=== PATIENT | male | born 1960 | race Caucasian/White ===

== ENCOUNTER 2020-02-23 23:38 | Inpatient (IN) | payer OTHER ==
[~2020-02-23 23:38] MED LIST: Iopamidol-370 76% 500 ML 1 ML ONE
[2020-02-23 23:56] LABS: #Basophils 0.1 thou/uL (0.0-0.2); #Eosinphils 0.3 thou/uL (0.0-0.7); #Lymphocytes 2.3 thou/uL (1.20-3.40); #Monocytes 0.6 thou/uL (0.11-0.59); #Neutrophils 4.6 thou/uL (1.40-6.50); %Eosinophils 3.8 % (0.0-10.0); %Lymphocytes 28.7 % (21.0-51.0); %Monocytes 7.8 % (0.0-10.0); %Neutrophils 58.5 % (42.0-75.0); Hemoglobin 8.3 g/dL (14.0-18.0); Mean Corpuscular HGB CONC 32.5 g/dL (32.0-36.0); Mean Corpuscular Hemoglobin 31.9 pg (27.0-31.0); Mean Corpuscular Volume 98.2 fL (78.0-98.0); Mean Platelet Volume 6.9 fL (7.4-10.4); Platelet Count 133 thou/uL (130-400); RBC Distribution Width 14.2 % (11.5-14.5); Red Blood Cell (RBC) Count 2.59 mill/uL (4.70-6.10); White Blood Cell (WBC) Count 7.9 thou/uL (4.8-10.8)
[2020-02-24] MEDS ORDERED: Ketamine 50 MG/ML (10ML VIAL) ONE (00:13)
[2020-02-24 00:15] LABS: ALT (SGPT) 26 U/L (8-55); AST (SGOT) 67 U/L (5-34); Albumin 3.4 g/dL (3.5-5.0); Alcohol 257 mg/dL (Less than 10); Alkaline Phosphatase 192 U/L (40-110); Anion Gap 13 mmol/L (10-20); BUN (Urea Nitrogen) 5 mg/dL (8.4-25.7); Calc. Creatinine Clearance 0 mL/min (70-130); Calcium 7.9 mg/dL (7.8-10.44); Carbon Dioxide 16 mmol/L (22-29); Chloride 106 mmol/L (98-107); Estimated GFR-MDRD Greater than 90; Globulin 3.4 g/dL (2.4-3.5); Glucose 107 mg/dL (70-105); Protein, Total 6.8 g/dL (6.0-8.3); Sodium 132 mmol/L (136-145)
[2020-02-24] MEDS ORDERED: Fentanyl 100 MCG/2 ML VIAL ONE ×2 (00:56→11:23)
[2020-02-24] MEDS ORDERED: Midazolam HCl 5 mg/ml Vial ONE (00:56)
[2020-02-24] MEDS ORDERED: Dextrose 50% Abboject 50 ML SYRINGE SLOW IVP PRN (01:01)
[2020-02-24] MEDS ORDERED: Dextrose 5% in Water 1,000 ML IV PRN (01:01)
[2020-02-24] MEDS ORDERED: Ondansetron PF 4 MG/2 ML Vial IVP PRN (01:01)
[2020-02-24] MEDS ORDERED: hydrALAZINE 20 MG/ML VIAL SLOW IVP PRN (01:01)
[2020-02-24] MEDS ORDERED: Promethazine HCl 25 MG/ML VIAL IM PRN ×2 (01:04→12:36)
[2020-02-24] MEDS ORDERED: traMADol HCl 50 MG TAB PO PRN ×2 (01:04)
[2020-02-24] MEDS ORDERED: Ibuprofen 600 MG TAB PO PRN (01:04)
[2020-02-24 01:25] LABS: Magnesium 1.5 mg/dL (1.6-2.6); Phosphorus 2.7 mg/dL (2.3-4.7)
[2020-02-24] MEDS ORDERED: Thiamine HCl 200 MG/2 ML VIAL SLOW IVP SCH (02:00)
[2020-02-24 02:15] LABS: Bacteria/HPF None Seen HPF (None Seen); Bilirubin Negative (Negative); Blood, Urine Negative (Negative); Clarity Clear (Clear); Glucose, Urine (Dipstick) Normal (Negative); Ketone, Urine Trace mg/dL (Negative); Leukocyte Negative Leu/uL (Negative); Nitrite Negative (Negative); Protein, Urine (Dipstick) 50 mg/dL (Neg-Trace); RBC/HPF 0-3 HPF (0-3); Specific Gravity, Urine 1.038 (1.002-1.036); Squamous Epithelial 0-3 HPF (0-3); WBC/HPF 0-3 HPF (0-3)
[2020-02-24] MEDS ORDERED: Magnesium Sulfate 4 GM in Sodium Chloride 0.9% 250 ML 250 ML IVPB SCH (03:45)
[2020-02-24] MEDS: Sodium Chloride 0.9% 1,000 ML IV SCH ×2 (03:51→14:44)
[2020-02-24] MEDS ORDERED: Potassium Phosphate 30 MMOL in Sodium Chloride 0.9% 500 ML IVPB SCH (04:00)
[2020-02-24 04:24] LABS: INR-International Normal Ratio 1.6; PTT 32.5 sec (22.9-36.1); Prothrombin Time 18.5 sec (12.0-14.7)
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
[2020-02-24 04:53] VITALS: BMI 29.5
[2020-02-24 05:49] LABS: Bacteria/HPF None Seen HPF (None Seen); Bilirubin Negative (Negative); Blood, Urine Negative (Negative); Clarity Clear (Clear); Glucose, Urine (Dipstick) Normal (Negative); Ketone, Urine Negative (Negative); Leukocyte Negative Leu/uL (Negative); Nitrite Negative (Negative); Protein, Urine (Dipstick) 20 mg/dL (Neg-Trace); RBC/HPF 0-3 HPF (0-3); Specific Gravity, Urine 1.056 (1.002-1.036); Squamous Epithelial 0-3 HPF (0-3); Urobilinogen Normal mg/dL (Less than 2); WBC/HPF 0-3 HPF (0-3)
[2020-02-24 06:00] LABS: Amphetamine Not Detected (NotDetected); Cocaine Metabolite Screen Detected (NotDetected); Medtox Reader # READER 4; Methamphetamine Not Detected (NotDetected); Opiate Screen Not Detected (NotDetected); Phencyclidine (PCP) Not Detected (NotDetected); THC/Cannabinoid Screen Detected (NotDetected)
[2020-02-24 06:01] LABS: Barbiturates Screen Not Detected (NotDetected); Benzodiazepine Screen Not Detected (NotDetected); Medtox Control Line Valid? VALID (VALID); Methadone Not Detected (NotDetected); Oxycodone Screen Not Detected (NotDetected); Tricyclic Screen Not Detected (NotDetected)
[2020-02-24] MEDS: Oxazepam 10 MG CAP PO SCH ×3 (06:14→21:56)
[2020-02-24] MEDS: Acetaminophen 325 MG TAB PO SCH ×2 (06:14→14:44)
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
--- NOTE | 2020-02-24 08:25 | RAD ---
THREE VIEWS RIGHT SHOULDER: DATE: 02/24/2020. PROVIDED CLINICAL HISTORY: Trauma. FINDINGS: There is Cranial migration of the humeral head with obliteration of the subacromial space and some re modeling changes of the undersurface of the acromion, compatible with chronic rotator cuff insufficie ncy. The scapular-Y view is suboptimally positioned, with a grossly normal appearance to the glenohu meral relationship on the current study. Acromioclavicular degenerative changes are seen. The visua lized right lung field appears clear. IMPRESSION: As above. POS: [facility]
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
[2020-02-24] MEDS ORDERED: Morphine 2 MG/ML SYRINGE SLOW IVP PRN (09:04)
--- NOTE | 2020-02-24 09:19 | RAD ---
LEFT HIP RADIOGRAPH: DATE: 02/24/2020. PROVIDED CLINICAL HISTORY: Dislocation. FINDINGS: Comparison 02/23/2020. Dislocation of the left femoral component of left total hip arthroplasty is red emonstrated. This was demonstrated by prior CT to represent displacement of the femoral head mediall y into the region of the obturator foramen. IMPRESSION: As above. POS: [facility]
--- NOTE | 2020-02-24 09:37 | RAD ---
LEFT HIP 2 VIEWS: HISTORY: Hip injury. FINDINGS: The patient has a total hip prosthesis. The prosthesis is dislocated with the femoral component of t he prosthesis dislocated medially in relation to the acetabular cup. IMPRESSION: Hip dislocation. POS: [facility]
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
--- NOTE | 2020-02-24 09:55 | RAD ---
AP PELVIS: HISTORY: Hip injury. FINDINGS: The left hip dislocation is again noted with the femoral component of the prosthesis dislocated media lly in relation to the acetabular cuff which appears to be in fairly normal position. IMPRESSION: Left hip dislocation. POS: [facility]
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
--- NOTE | 2020-02-24 10:49 | RAD ---
TWO VIEWS LEFT WRIST: DATE: 02/24/2020. PROVIDED CLINICAL HISTORY: Pain. FINDINGS: There is soft tissue prominence of the dorsum of the wrist as well as an irregular appearance to the dorsal aspects of the distal carpal row. On the lateral view, there is questioned irregularity invol ving the ulnar margin of the hamate. IMPRESSION: Possible age-indeterminate dorsal hamate fracture. POS: [facility]
[2020-02-24] MEDS: Ascorbic Acid 500 mg Chewable Tablet PO SCH ×2 (11:13→21:56)
[2020-02-24] MEDS: Folic Acid 1 MG TAB PO SCH (11:14)
[2020-02-24] MEDS: Senokot S 8.6-50 MG TAB PO SCH ×2 (11:14→21:54)
[2020-02-24] MEDS: Multivitamin W/ Minerals 1 TAB PO SCH (11:14)
[2020-02-24] MEDS: Polyethylene Glycol 3350 17 GM Packet PO SCH (11:14)
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
[2020-02-24] MEDS ORDERED: Promethazine HCl 25 MG/ML VIAL SLOW IVP PRN (12:36)
[2020-02-24] MEDS ORDERED: Ondansetron HCl/PF 4 MG/2 ML Vial IVP PRN (12:36)
[2020-02-24] MEDS ORDERED: Acetaminophen 500 MG TAB PO SCH ×2 (13:00→18:00)
[2020-02-24] MEDS ORDERED: Dexamethasone 20 MG/5 ML VIAL ONE (14:12)
[2020-02-24] MEDS ORDERED: PHENYLEPHRINE-NS 100 MCG/ML 10 ML SYRINGE ONE (14:12)
[2020-02-24] MEDS ORDERED: Succinylcholine Chloride 20 MG/ML 10 ml SYRINGE FS ONE (14:12)
[2020-02-24] MEDS ORDERED: PROPOFOL 200 MG/20 ML VIAL ONE (14:12)
[2020-02-24] MEDS ORDERED: Glycopyrrolate 0.2 MG/ML 5 ML SYRINGE ONE (14:12)
[2020-02-24] MEDS ORDERED: Lidocaine 1% PF 5 ML VIAL ONE (14:12)
[2020-02-24] MEDS ORDERED: Rocuronium Bromide 10 MG/ML (10ML VIAL) ONE (14:12)
[2020-02-24] MEDS ORDERED: Ondansetron PF 4 MG/2 ML Vial ONE (14:12)
--- NOTE | 2020-02-24 14:15 | RAD ---
TWO VIEWS LEFT HIP: Date: 02-24-2020 Provided Clinical History: Closed reduction FINDINGS: Comparison is made with exam earlier same date. Interval reduction of the previously described left hip dislocation. Alignment appear anatomic. IMPRESSION: As above. POS: [facility]
[2020-02-24] MEDS: Ibuprofen 600 MG TAB PO SCH ×2 (14:24→21:56)
[2020-02-24] MEDS ORDERED: Gabapentin 300 MG CAP PO SCH (15:00)
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
[2020-02-24] MEDS ORDERED: Primidone 50 MG TAB PO PRN (16:18)
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
[2020-02-24] MEDS ORDERED: Acetaminophen/Codeine 30-300mg Tablet PO PRN (18:05)
[2020-02-24] MEDS: Thiamine HCl 200 MG/2 ML VIAL SLOW IVP SCH (21:56)
[2020-02-24] MEDS: Gabapentin 300 MG CAP PO SCH (21:56)
[2020-02-25] MEDS: Acetaminophen/Codeine 30-300mg Tablet PO PRN ×3 (01:33→21:21)
[2020-02-25] MEDS: Acetaminophen 325 MG TAB PO SCH ×4 (01:34→18:21)
[2020-02-25] MEDS: Oxazepam 10 MG CAP PO SCH ×3 (05:15→21:20)
[2020-02-25] MEDS: Ibuprofen 600 MG TAB PO SCH (05:16)
[2020-02-25 05:47] LABS: Anion Gap 10 mmol/L (10-20); BUN (Urea Nitrogen) 12 mg/dL (8.4-25.7); Calc. Creatinine Clearance 111 mL/min (70-130); Calcium 7.4 mg/dL (7.8-10.44); Carbon Dioxide 22 mmol/L (22-29); Chloride 111 mmol/L (98-107); Estimated GFR-MDRD 87; Glucose 132 mg/dL (70-105); Magnesium 2.1 mg/dL (1.6-2.6); Phosphorus 2.8 mg/dL (2.3-4.7); Potassium 4.2 mmol/L (3.5-5.1); Sodium 139 mmol/L (136-145)
[2020-02-25 06:10] LABS: Mean Corpuscular HGB CONC 31.9 g/dL (32.0-36.0); Mean Corpuscular Hemoglobin 30.6 pg (27.0-31.0); Mean Corpuscular Volume 95.9 fL (78.0-98.0); Mean Platelet Volume 7.6 fL (7.4-10.4); Platelet Count 94 thou/uL (130-400); RBC Distribution Width 14.5 % (11.5-14.5); Red Blood Cell (RBC) Count 1.94 mill/uL (4.70-6.10); White Blood Cell (WBC) Count 6.1 thou/uL (4.8-10.8)
[2020-02-25] MEDS ORDERED: Sodium Chloride 0.9% 500 ML IVPB SCH (06:15)
[2020-02-25] MEDS: Polyethylene Glycol 3350 17 GM Packet PO SCH (08:45)
[2020-02-25] MEDS: Folic Acid 1 MG TAB PO SCH (08:46)
[2020-02-25] MEDS: Senokot S 8.6-50 MG TAB PO SCH ×2 (08:46→21:20)
[2020-02-25] MEDS: Gabapentin 300 MG CAP PO SCH ×3 (08:47→21:20)
[2020-02-25] MEDS: Ascorbic Acid 500 mg Chewable Tablet PO SCH ×2 (08:47→21:20)
[2020-02-25] MEDS: PARoxetine 20 MG TAB PO SCH (08:47)
[2020-02-25] MEDS: Nadolol 40 MG TAB PO SCH (08:47)
[2020-02-25] MEDS: Multivitamin W/ Minerals 1 TAB PO SCH (08:47)
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
[2020-02-25] MEDS: Ferrous Sulfate 325 MG TAB PO SCH (18:21)
[2020-02-25] MEDS: Thiamine HCl 200 MG/2 ML VIAL SLOW IVP SCH (21:20)
[2020-02-25] MEDS ORDERED: Senokot S 8.6-50 MG TAB PO PRN (22:11)
[2020-02-25] MEDS ORDERED: Polyethylene Glycol 3350 17 GM Packet PO PRN (22:11)
--- NOTE | 2020-02-25 23:15 | PRG ---
DATE OF SERVICE: 02/25/2020 SUBJECTIVE: The patient was seen during evening rounds, resting comfortably. The patient in no distress. The patient's nurse states that his pain is controlled at this time. The patient has also had 3 bowel movements. Urinary output is adequate for the patient's age and weight. OBJECTIVE: VITAL SIGNS: Stable, afebrile. PLAN: We will change the patient's bowel regimen to p.r.n. Continue iron and vitamin C. We will watch for bleeding as the patient has a history of esophageal varices. We will continue Serax for alcohol withdrawal. Continue physical and occupational therapy. Continue aggressive pulmonary toilet. Once the patient's pain is well controlled and is ambulating safely with physical therapy, he may be discharged home. Job ID: [id number]
[2020-02-26] MEDS: Acetaminophen 325 MG TAB PO SCH ×5 (02:24→23:33)
[2020-02-26] MEDS: Oxazepam 10 MG CAP PO SCH ×3 (05:11→21:23)
[2020-02-26 05:18] LABS: #Eosinphils 0.1 thou/uL (0.0-0.7); #Lymphocytes 0.9 thou/uL (1.20-3.40); #Monocytes 0.3 thou/uL (0.11-0.59); %Basophils 0.3 % (0.0-1.0); %Eosinophils 2.9 % (0.0-10.0); %Lymphocytes 26.1 % (21.0-51.0); %Monocytes 9.7 % (0.0-10.0); Hemoglobin 6.1 g/dL (14.0-18.0); Mean Corpuscular HGB CONC 31.2 g/dL (32.0-36.0); Mean Corpuscular Hemoglobin 29.9 pg (27.0-31.0); Mean Corpuscular Volume 95.5 fL (78.0-98.0); Mean Platelet Volume 7.4 fL (7.4-10.4); Platelet Count 69 thou/uL (130-400); RBC Distribution Width 15.8 % (11.5-14.5); Red Blood Cell (RBC) Count 2.06 mill/uL (4.70-6.10); White Blood Cell (WBC) Count 3.3 thou/uL (4.8-10.8)
[2020-02-26 05:28] LABS: PTT 34.2 sec (22.9-36.1)
[2020-02-26 05:29] LABS: INR-International Normal Ratio 1.5
[2020-02-26 05:38] LABS: Anion Gap 10 mmol/L (10-20); BUN (Urea Nitrogen) 12 mg/dL (8.4-25.7); Calc. Creatinine Clearance 132 mL/min (70-130); Calcium 7.4 mg/dL (7.8-10.44); Carbon Dioxide 21 mmol/L (22-29); Chloride 111 mmol/L (98-107); Estimated GFR-MDRD Greater than 90; Glucose 95 mg/dL (70-105); Magnesium 1.7 mg/dL (1.6-2.6); Phosphorus 1.7 mg/dL (2.3-4.7); Potassium 3.7 mmol/L (3.5-5.1); Sodium 138 mmol/L (136-145)
[2020-02-26] MEDS ORDERED: Potassium Phosphate 30 MMOL in Sodium Chloride 0.9% 500 ML IVPB SCH (06:00)
[2020-02-26] MEDS ORDERED: Potassium Phosphate 30 MMOL in Sodium Chloride 0.9% 250 ML 250 ML IVPB SCH (06:45)
[2020-02-26 08:17] LABS: Hemoglobin 6.4 g/dL (14.0-18.0)
[2020-02-26] MEDS: Ascorbic Acid 500 mg Chewable Tablet PO SCH ×2 (08:29→21:23)
[2020-02-26] MEDS: Ferrous Sulfate 325 MG TAB PO SCH ×2 (08:29→18:03)
[2020-02-26] MEDS: Nadolol 40 MG TAB PO SCH (08:30)
[2020-02-26] MEDS: Multivitamin W/ Minerals 1 TAB PO SCH (08:30)
[2020-02-26] MEDS: Gabapentin 300 MG CAP PO SCH ×3 (08:30→21:23)
[2020-02-26] MEDS: Folic Acid 1 MG TAB PO SCH (08:30)
[2020-02-26] MEDS: PARoxetine 20 MG TAB PO SCH (08:31)
[2020-02-26] MEDS ORDERED: Octreotide Acetate 50 MCG in Sodium Chloride 0.9% 50 ML IVPB SCH (11:45)
[2020-02-26] MEDS: Octreotide Acetate 1,250 MCG in Sodium Chloride 0.9% 250 ML 250 ML IVPB SCH (12:25)
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
[2020-02-26] MEDS: Thiamine HCl 200 MG/2 ML VIAL SLOW IVP SCH (21:23)
[2020-02-27] MEDS: Acetaminophen 325 MG TAB PO SCH ×4 (06:45→23:51)
[2020-02-27] MEDS: Oxazepam 10 MG CAP PO SCH ×3 (06:45→21:08)
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
[2020-02-27] MEDS: Ferrous Sulfate 325 MG TAB PO SCH ×2 (08:08→18:26)
[2020-02-27] MEDS: Gabapentin 300 MG CAP PO SCH ×3 (08:08→21:08)
[2020-02-27] MEDS: Ascorbic Acid 500 mg Chewable Tablet PO SCH ×2 (08:08→21:07)
[2020-02-27] MEDS: Folic Acid 1 MG TAB PO SCH (08:08)
[2020-02-27] MEDS: Multivitamin W/ Minerals 1 TAB PO SCH (08:08)
[2020-02-27] MEDS: Nadolol 40 MG TAB PO SCH (08:09)
[2020-02-27] MEDS: PARoxetine 20 MG TAB PO SCH (08:09)
[2020-02-27] MEDS ORDERED: SUGAMMADEX SODIUM 200 MG/2 ML VIAL ONE (09:02)
[2020-02-27] MEDS ORDERED: Fentanyl 100 MCG/2 ML VIAL ONE (09:02)
[2020-02-27 10:27] LABS: Hemoglobin 7.6 g/dL (14.0-18.0); Mean Corpuscular HGB CONC 32.4 g/dL (32.0-36.0); Mean Corpuscular Hemoglobin 29.9 pg (27.0-31.0); Mean Corpuscular Volume 92.3 fL (78.0-98.0); Mean Platelet Volume 7.6 fL (7.4-10.4); Platelet Count 72 thou/uL (130-400); RBC Distribution Width 18.8 % (11.5-14.5); Red Blood Cell (RBC) Count 2.55 mill/uL (4.70-6.10); White Blood Cell (WBC) Count 3.9 thou/uL (4.8-10.8)
[2020-02-27 10:47] LABS: Anion Gap 12 mmol/L (10-20); BUN (Urea Nitrogen) 7 mg/dL (8.4-25.7); Calc. Creatinine Clearance 155 mL/min (70-130); Calcium 7.8 mg/dL (7.8-10.44); Carbon Dioxide 20 mmol/L (22-29); Chloride 108 mmol/L (98-107); Estimated GFR-MDRD Greater than 90; Glucose 115 mg/dL (70-105); Magnesium 1.5 mg/dL (1.6-2.6); Phosphorus 2.4 mg/dL (2.3-4.7); Potassium 4.1 mmol/L (3.5-5.1); Sodium 136 mmol/L (136-145)
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
[2020-02-27] MEDS ORDERED: Magnesium Sulfate 3 GM in Sodium Chloride 0.9% 250 ML 250 ML IVPB SCH (12:15)
[2020-02-27] MEDS: Octreotide Acetate 1,250 MCG in Sodium Chloride 0.9% 250 ML 250 ML IVPB SCH (14:17)
[2020-02-27] MEDS: Thiamine HCl 200 MG/2 ML VIAL SLOW IVP SCH (21:08)
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
[2020-02-28] MEDS: Acetaminophen 325 MG TAB PO SCH ×4 (05:19→23:27)
[2020-02-28] MEDS: Oxazepam 10 MG CAP PO SCH ×3 (05:19→21:26)
[2020-02-28 06:05] LABS: Anion Gap 11 mmol/L (10-20); BUN (Urea Nitrogen) 6 mg/dL (8.4-25.7); Calc. Creatinine Clearance 157 mL/min (70-130); Calcium 7.6 mg/dL (7.8-10.44); Carbon Dioxide 20 mmol/L (22-29); Chloride 106 mmol/L (98-107); Estimated GFR-MDRD Greater than 90; Glucose 111 mg/dL (70-105); Magnesium 1.7 mg/dL (1.6-2.6); Phosphorus 2.3 mg/dL (2.3-4.7); Sodium 133 mmol/L (136-145)
[2020-02-28 06:36] LABS: Hemoglobin 7.5 g/dL (14.0-18.0); Mean Corpuscular HGB CONC 31.6 g/dL (32.0-36.0); Mean Corpuscular Hemoglobin 31.2 pg (27.0-31.0); Mean Corpuscular Volume 98.8 fL (78.0-98.0); Mean Platelet Volume 9.5 fL (7.4-10.4); Platelet Count 79 thou/uL (130-400); White Blood Cell (WBC) Count 3.6 thou/uL (4.8-10.8)
[2020-02-28 08:42] LABS: Band 8 % (5-11); Hypochromia SLIGHT = 6-15 cells (100X) (0-5/hpf); Lymphocytes 24 % (21-51); MDiff Complete? YES; Monocytes 3 % (0-10); Neutrophil 65 % (42-75); Platelet Morphology Comment Appears Decreased; Polychromasia MODERATE = 3-4 cells (100X) (0-2/hpf)
[2020-02-28] MEDS: Ferrous Sulfate 325 MG TAB PO SCH ×2 (10:25→17:23)
[2020-02-28] MEDS: Ascorbic Acid 500 mg Chewable Tablet PO SCH ×2 (10:26→21:26)
[2020-02-28] MEDS: Bacitracin 1 PK TOP SCH ×2 (10:27→21:26)
[2020-02-28] MEDS: Folic Acid 1 MG TAB PO SCH (10:27)
[2020-02-28] MEDS: Gabapentin 300 MG CAP PO SCH ×3 (10:28→21:26)
[2020-02-28] MEDS: Nadolol 40 MG TAB PO SCH ×2 (10:28→18:25)
[2020-02-28] MEDS: Multivitamin W/ Minerals 1 TAB PO SCH (10:28)
[2020-02-28] MEDS: PARoxetine 20 MG TAB PO SCH ×2 (10:29→18:26)
[2020-02-28] MEDS ORDERED: Ketamine 50 MG/ML (10ML VIAL) ONE (11:16)
[2020-02-28] MEDS ORDERED: PROPOFOL 200 MG/20 ML VIAL ONE (11:50)
[2020-02-28] MEDS ORDERED: Lidocaine 1% PF 5 ML VIAL ONE (11:50)
[2020-02-28] MEDS ORDERED: Promethazine HCl 25 MG/ML VIAL IM PRN (12:12)
[2020-02-28] MEDS ORDERED: Ondansetron HCl/PF 4 MG/2 ML Vial IVP PRN (12:12)
[2020-02-28] MEDS ORDERED: Promethazine HCl 25 MG/ML VIAL SLOW IVP PRN (12:12)
[2020-02-28] MEDS ORDERED: Ondansetron PF 4 MG/2 ML Vial ONE (12:34)
--- NOTE | 2020-02-28 13:20 | OP ---
DATE OF PROCEDURE: 02/28/2020 PROCEDURE PERFORMED: Esophagogastroduodenoscopy with control of hemorrhage, band ligation x2. INDICATION FOR PROCEDURE: Anemia, history of cirrhosis with esophageal varices, status post band ligation. DESCRIPTION OF PROCEDURE: After the risks and benefits of the procedure were explained to the patient including risks of bleeding, infection, perforation, reactions to anesthesia, aspiration, and/or pain, informed consent was obtained. The patient was then taken to the endoscopy suite, where deep anesthesia was given via propofol and ketamine with anesthesia support. Once adequate sedation was achieved, he was maneuvered into the left lateral decubitus position, followed by introduction of the standard gastroscope with intubation of the esophagus, stomach, and the proximal small intestine with the findings listed below. The patient tolerated the procedure well with no immediate perioperative complications. Upon conclusion of the procedure, all equipment was removed from the patient and he was transferred to PACU in satisfactory condition. FINDINGS: Esophagus: Normal-appearing mucosa was seen in the proximal and mid esophagus. There was evidence of whitish-appearing mucosa with a radial type pattern in the distal esophagus consistent with prior band ligation and scar formation. However, there was one small to medium-sized esophageal varix seen in the distal esophagus just above the GE junction that did exhibit red obinna sign. There was no evidence of adherent clot or evidence of active/recent bleeding. Given the presence of this red obinna sign and his prior history of bleeding esophageal varices, band ligation x2 was then performed with no bleeding noted at the end of the maneuver. Otherwise, there was no evidence of erosions, ulcerations, mass lesions, or active/recent bleeding. Stomach: Mild mucosal erythema in a mosaic-type pattern was seen throughout the entire stomach that was friable to the passage of the gastroscope with increased oozing of blood with suctioning the gastric mucosa. However, there was a linear patch of submucosal hemorrhage consistent with a possible arteriovenous malformation seen in the gastric fundus that was actively oozing blood, but stopped only with direct visualization. Given his recent anemia, this was intervened upon with argon plasma coagulation with good hemostasis achieved and no bleeding noted at the end of the maneuver. Otherwise, normal-appearing mucosa was seen in the gastric cardia, fundus, body, greater curvature, antrum, and incisura. A hiatal hernia was seen on gastric retroflexion with the diaphragmatic pinch seen at 40 cm while the gastroesophageal junction was seen at 37 cm denoting a 3 cm hiatal hernia. Duodenum: Normal-appearing mucosa was seen in both the duodenal bulb and second portion of the duodenum. There was no evidence of erosions, ulcerations, mass lesions, or active/recent bleeding. IMPRESSION: 1. A small to medium-sized, single distal esophageal varix seen with red obinna sign without other high-risk stigmata of active/recent bleeding, now status post band ligation x2 (does not seem to be the source of the patient's anemia). 2. Evidence of prior band ligation in the distal esophagus. 3. Xnhl-la-xfbkbnri portal hypertensive gastropathy with increased friability to the passage of the gastroscope. 4. A linear patch of submucosal hemorrhage/arteriovenous malformation with mild oozing, status post argon plasma coagulation with good hemostasis achieved ( unclear if this is contributing to the patient's anemia). 5. A 3 cm hiatal hernia. RECOMMENDATIONS: 1. Would continue to trend the patient's H and H and transfuse as necessary to maintain an H and H of 7 and 21. 2. Continue to monitor clinically for signs of active GI bleeding. 3. If the patient continues to have decrease in his H and H, I would consider a non-GI source of his bleeding or obtaining a tagged RBC scan for further localization. Given the findings today, they are most likely not contributing to his significant downtrending anemia during this admission. 4. I would continue the octreotide for a total duration of therapy of 72 hours. 5. Continue PPI 40 mg daily. 6. Pain control per primary team. We will continue to follow peripherally at this time. Please call with any questions. Job ID: [id number] [facility]
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
[2020-02-28] MEDS: Thiamine HCl 200 MG/2 ML VIAL SLOW IVP SCH (21:26)
[2020-02-28] MEDS: Octreotide Acetate 1,250 MCG in Sodium Chloride 0.9% 250 ML 250 ML IVPB SCH (21:27)
[2020-02-28] MEDS: Acetaminophen/Codeine 30-300mg Tablet PO PRN (22:41)
[2020-02-29 06:00] LABS: Anion Gap 10 mmol/L (10-20); BUN (Urea Nitrogen) 6 mg/dL (8.4-25.7); Calc. Creatinine Clearance 165 mL/min (70-130); Calcium 7.5 mg/dL (7.8-10.44); Carbon Dioxide 22 mmol/L (22-29); Chloride 104 mmol/L (98-107); Estimated GFR-MDRD Greater than 90; Glucose 102 mg/dL (70-105); Magnesium 1.6 mg/dL (1.6-2.6); Phosphorus 2.5 mg/dL (2.3-4.7); Potassium 3.9 mmol/L (3.5-5.1); Sodium 132 mmol/L (136-145)
[2020-02-29 06:10] LABS: Band 6 % (5-11); Hemoglobin 7.5 g/dL (14.0-18.0); Hypochromia SLIGHT = 6-15 cells (100X) (0-5/hpf); Lymphocytes 12 % (21-51); MDiff Complete? YES; Mean Corpuscular HGB CONC 31.8 g/dL (32.0-36.0); Mean Corpuscular Hemoglobin 29.7 pg (27.0-31.0); Mean Corpuscular Volume 93.3 fL (78.0-98.0); Monocytes 8 % (0-10); Neutrophil 74 % (42-75); Platelet Count 65 thou/uL (130-400); Platelet Morphology Comment Appears Adequate; RBC Distribution Width 19.1 % (11.5-14.5); Red Blood Cell (RBC) Count 2.53 mill/uL (4.70-6.10); White Blood Cell (WBC) Count 3.4 thou/uL (4.8-10.8)
[2020-02-29] MEDS: Acetaminophen 325 MG TAB PO SCH ×4 (06:13→23:08)
[2020-02-29] MEDS: Oxazepam 10 MG CAP PO SCH ×3 (06:13→23:08)
[2020-02-29] MEDS ORDERED: Magnesium 2 GM/50 ML 2 GM in Premix Bag 1 BAG IVPB SCH (08:00)
[2020-02-29] MEDS: Nadolol 40 MG TAB PO SCH (08:30)
[2020-02-29] MEDS: PARoxetine 20 MG TAB PO SCH (08:31)
[2020-02-29] MEDS: Gabapentin 300 MG CAP PO SCH ×3 (08:31→20:29)
[2020-02-29] MEDS: Ascorbic Acid 500 mg Chewable Tablet PO SCH ×2 (08:31→17:55)
[2020-02-29] MEDS: Multivitamin W/ Minerals 1 TAB PO SCH (08:31)
[2020-02-29] MEDS: Ferrous Sulfate 325 MG TAB PO SCH ×2 (08:31→17:55)
[2020-02-29] MEDS: Folic Acid 1 MG TAB PO SCH (08:31)
[2020-02-29] MEDS: Bacitracin 1 PK TOP SCH ×2 (08:37→20:29)
[2020-02-29] MEDS: Thiamine 100 MG TAB PO SCH (08:37)
[2020-02-29 14:07] LABS: Hemoglobin 7.7 g/dL (14.0-18.0); Platelet Count 83 thou/uL (130-400)
[2020-02-29] MEDS: Nicotine 14 MG PATCH TOP SCH (15:00)
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
[2020-02-29] MEDS ORDERED: Guaifenesin DM 100-10/5 ML UDCUP PO SCH (18:15)
[2020-02-29 18:31] LABS: Hemoglobin 7.7 g/dL (14.0-18.0); Platelet Count 85 thou/uL (130-400)
[2020-02-29] MEDS: Octreotide Acetate 1,250 MCG in Sodium Chloride 0.9% 250 ML 250 ML IVPB SCH (23:41)
[2020-03-01] MEDS: Acetaminophen 325 MG TAB PO SCH ×4 (05:53→23:44)
[2020-03-01] MEDS: Oxazepam 10 MG CAP PO SCH ×3 (05:53→21:01)
[2020-03-01 06:55] LABS: Band 34 % (5-11); Hemoglobin 7.2 g/dL (14.0-18.0); Lymphocytes 10 % (21-51); MDiff Complete? YES; Mean Corpuscular HGB CONC 31.7 g/dL (32.0-36.0); Mean Corpuscular Hemoglobin 29.7 pg (27.0-31.0); Mean Corpuscular Volume 93.8 fL (78.0-98.0); Mean Platelet Volume 8.2 fL (7.4-10.4); Monocytes 9 % (0-10); Neutrophil 47 % (42-75); Platelet Count 85 thou/uL (130-400); Platelet Morphology Comment Appears Decreased; Red Blood Cell (RBC) Count 2.44 mill/uL (4.70-6.10); White Blood Cell (WBC) Count 4.5 thou/uL (4.8-10.8)
[2020-03-01 07:05] LABS: Anion Gap 10 mmol/L (10-20); BUN (Urea Nitrogen) 9 mg/dL (8.4-25.7); Calc. Creatinine Clearance 152 mL/min (70-130); Calcium 7.5 mg/dL (7.8-10.44); Carbon Dioxide 23 mmol/L (22-29); Chloride 103 mmol/L (98-107); Estimated GFR-MDRD Greater than 90; Glucose 99 mg/dL (70-105); Magnesium 1.7 mg/dL (1.6-2.6); Phosphorus 2.3 mg/dL (2.3-4.7); Sodium 132 mmol/L (136-145)
[2020-03-01] MEDS: Ascorbic Acid 500 mg Chewable Tablet PO SCH ×2 (09:47→18:15)
[2020-03-01] MEDS: Multivitamin W/ Minerals 1 TAB PO SCH (09:47)
[2020-03-01] MEDS: PARoxetine 20 MG TAB PO SCH (09:48)
[2020-03-01] MEDS: Gabapentin 300 MG CAP PO SCH ×3 (09:48→21:01)
[2020-03-01] MEDS: Ferrous Sulfate 325 MG TAB PO SCH ×2 (09:48→18:15)
[2020-03-01] MEDS: Folic Acid 1 MG TAB PO SCH (09:48)
[2020-03-01] MEDS: Thiamine 100 MG TAB PO SCH (09:48)
[2020-03-01] MEDS: Nadolol 40 MG TAB PO SCH (09:48)
[2020-03-01] MEDS: Bacitracin 1 PK TOP SCH ×2 (09:49→21:01)
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
[2020-03-01] MEDS: Nicotine 14 MG PATCH TOP SCH (14:01)
[2020-03-01 19:10] LABS: Hemoglobin 6.9 g/dL (14.0-18.0); Platelet Count 76 thou/uL (130-400)
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
[2020-03-02 05:31] LABS: Hemoglobin 7.7 g/dL (14.0-18.0); Platelet Count 78 thou/uL (130-400)
[2020-03-02] MEDS: Oxazepam 10 MG CAP PO SCH ×3 (05:50→20:40)
[2020-03-02] MEDS: Acetaminophen 325 MG TAB PO SCH ×3 (05:50→17:45)
[2020-03-02] MEDS: Furosemide 20 MG TAB PO SCH (08:58)
[2020-03-02] MEDS: Thiamine 100 MG TAB PO SCH (08:58)
[2020-03-02] MEDS: Nadolol 40 MG TAB PO SCH (08:58)
[2020-03-02] MEDS: Ferrous Sulfate 325 MG TAB PO SCH ×2 (08:58→17:45)
[2020-03-02] MEDS: Folic Acid 1 MG TAB PO SCH (08:58)
[2020-03-02] MEDS: Ascorbic Acid 500 mg Chewable Tablet PO SCH ×2 (08:58→17:45)
[2020-03-02] MEDS: Multivitamin W/ Minerals 1 TAB PO SCH (08:58)
[2020-03-02] MEDS: PARoxetine 20 MG TAB PO SCH (08:58)
[2020-03-02] MEDS: Bacitracin 1 PK TOP SCH ×2 (08:59→20:39)
[2020-03-02] MEDS: Gabapentin 300 MG CAP PO SCH ×3 (09:01→20:39)
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
[2020-03-02] MEDS: Nicotine 14 MG PATCH TOP SCH (14:25)
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
[2020-03-03] MEDS: Acetaminophen 325 MG TAB PO SCH ×3 (00:10→11:34)
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
[2020-03-03 05:39] LABS: #Eosinphils 0.1 thou/uL (0.0-0.7); #Lymphocytes 0.7 thou/uL (1.20-3.40); #Monocytes 0.7 thou/uL (0.11-0.59); #Neutrophils 3.2 thou/uL (1.40-6.50); %Basophils 0.1 % (0.0-1.0); %Eosinophils 2.6 % (0.0-10.0); %Lymphocytes 15.3 % (21.0-51.0); %Monocytes 14.3 % (0.0-10.0); %Neutrophils 67.7 % (42.0-75.0); Hemoglobin 7.9 g/dL (14.0-18.0); Mean Corpuscular HGB CONC 32.2 g/dL (32.0-36.0); Mean Corpuscular Hemoglobin 29.9 pg (27.0-31.0); Mean Corpuscular Volume 92.7 fL (78.0-98.0); Platelet Count 93 thou/uL (130-400); RBC Distribution Width 18.1 % (11.5-14.5); Red Blood Cell (RBC) Count 2.65 mill/uL (4.70-6.10); White Blood Cell (WBC) Count 4.7 thou/uL (4.8-10.8)
[2020-03-03] MEDS: Oxazepam 10 MG CAP PO SCH (05:51)
[2020-03-03 05:58] LABS: Phosphorus 2.1 mg/dL (2.3-4.7)
[2020-03-03 06:03] LABS: Anion Gap 10 mmol/L (10-20); BUN (Urea Nitrogen) 9 mg/dL (8.4-25.7); Calc. Creatinine Clearance 160 mL/min (70-130); Calcium 7.5 mg/dL (7.8-10.44); Carbon Dioxide 22 mmol/L (22-29); Chloride 102 mmol/L (98-107); Estimated GFR-MDRD Greater than 90; Glucose 92 mg/dL (70-105); Magnesium 1.5 mg/dL (1.6-2.6); Potassium 3.7 mmol/L (3.5-5.1); Sodium 130 mmol/L (136-145)
[2020-03-03] MEDS ORDERED: Magnesium 2 GM/50 ML 2 GM in Premix Bag 1 BAG IVPB SCH (08:00)
[2020-03-03] MEDS ORDERED: Sodium Chloride 1 GM TAB PO SCH (09:00)
[2020-03-03] MEDS: Furosemide 20 MG TAB PO SCH (09:20)
[2020-03-03] MEDS: Thiamine 100 MG TAB PO SCH (09:20)
[2020-03-03] MEDS: Bacitracin 1 PK TOP SCH (09:20)
[2020-03-03] MEDS: Folic Acid 1 MG TAB PO SCH (09:20)
[2020-03-03] MEDS: Gabapentin 300 MG CAP PO SCH (09:20)
[2020-03-03] MEDS: Multivitamin W/ Minerals 1 TAB PO SCH (09:20)
[2020-03-03] MEDS: PARoxetine 20 MG TAB PO SCH (09:20)
[2020-03-03] MEDS: Ferrous Sulfate 325 MG TAB PO SCH (09:20)
[2020-03-03] MEDS: Nadolol 40 MG TAB PO SCH (09:21)
[2020-03-03] MEDS: Ascorbic Acid 500 mg Chewable Tablet PO SCH (09:22)
[2020-03-03 11:15] VITALS: BP 115/69; TEMP 98
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
== END 2020-03-03 14:53 | disposition home or self-care (01) | DRG 559 ==
LOC: ERS 23:38 → SURG A 02-24 00:15
PROVIDERS: ADMIT Surgery; ATTEND Surgery
PROC: 0SWBXJZ Revision of Synthetic Substitute in Left Hip Joint, External Approach (ICD-10-PCS; principal; 2020-02-24)
PROC: 30233N1 Transfusion of Nonautologous Red Blood Cells into Peripheral Vein, Percutaneous Approach (ICD-10-PCS; 2020-02-25)
PROC: 06L38CZ Occlusion of Esophageal Vein with Extraluminal Device, Via Natural or Artificial Opening Endoscopic (ICD-10-PCS; 2020-02-28)
DX: T84.021A Dislocation of internal left hip prosthesis, initial encounter (principal); S72.092A Other fracture of head and neck of left femur, initial encounter for closed fracture; K31.811 Angiodysplasia of stomach and duodenum with bleeding; J18.9 Pneumonia, unspecified organism; S32.592A Other specified fracture of left pubis, initial encounter for closed fracture; D61.818 Other pancytopenia; S22.42XA Multiple fractures of ribs, left side, initial encounter for closed fracture; S22.081A Stable burst fracture of T11-T12 vertebra, initial encounter for closed fracture; S32.011A Stable burst fracture of first lumbar vertebra, initial encounter for closed fracture; K76.6 Portal hypertension; D62 Acute posthemorrhagic anemia; E87.1 Hypo-osmolality and hyponatremia; I85.10 Secondary esophageal varices without bleeding; Z11.59 Encounter for screening for other viral diseases; V86.59XA Driver of other special all-terrain or other off-road motor vehicle injured in nontraffic accident, initial encounter; S42.012A Anterior displaced fracture of sternal end of left clavicle, initial encounter for closed fracture; S42.032A Displaced fracture of lateral end of left clavicle, initial encounter for closed fracture; S00.01XA Abrasion of scalp, initial encounter; S63.502A Unspecified sprain of left wrist, initial encounter; S60.512A Abrasion of left hand, initial encounter; F10.129 Alcohol abuse with intoxication, unspecified; Y90.8 Blood alcohol level of 240 mg/100 ml or more; K70.31 Alcoholic cirrhosis of liver with ascites; I10 Essential (primary) hypertension; F17.210 Nicotine dependence, cigarettes, uncomplicated; K31.89 Other diseases of stomach and duodenum; D63.8 Anemia in other chronic diseases classified elsewhere; F41.9 Anxiety disorder, unspecified; E87.6 Hypokalemia; E83.42 Hypomagnesemia; E86.0 Dehydration; J20.9 Acute bronchitis, unspecified; Z79.899 Other long term (current) drug therapy
CPT/HCPCS: 36415; 36430; 51702; 70450; 71260; 72125; 72170; 74177; 76000; 80048; 80053; 80306; 80307; 81003; 81015; 83735; 84100; 85007; 85014; 85018; 85025; 85027; 85049; 85610; 85730; 86850; 86900; 86901; 87070; 87205; 87635; 96374; 96375; G0390; J1100; J2250; J2354; J2405; J2704; J3010; J3411; J3475; J7030; J7050; P9016; Q9967; U0002; U0003

== ENCOUNTER 2020-12-21 17:41 | Inpatient (IN) | payer MEDICARE, OTHER ==
[2020-12-21 19:46] VITALS: BMI 27.1
[2020-12-21] MEDS ORDERED: Ondansetron PF 4 MG/2 ML Vial IVP PRN (22:48)
[2020-12-21] MEDS ORDERED: Acetaminophen 325 MG TAB PO PRN (22:48)
[2020-12-21 23:21] LABS: Hemoglobin 9.2 g/dL (14.0-18.0)
[2020-12-22 02:57] LABS: SARS-CoV-2 PCR by NAA Not Detected (NotDetected)
[2020-12-22 05:45] LABS: Hemoglobin 9.1 g/dL (14.0-18.0); Mean Corpuscular HGB CONC 33.8 g/dL (32.0-36.0); Mean Corpuscular Volume 97.8 fL (78.0-98.0); Mean Platelet Volume 9.4 fL (7.4-10.4); Platelet Count 28 thou/uL (130-400); RBC Distribution Width 13.3 % (11.5-14.5); Red Blood Cell (RBC) Count 2.75 mill/uL (4.70-6.10)
[2020-12-22 05:47] LABS: INR-International Normal Ratio 1.4; PTT 40.2 sec (22.9-36.1); Prothrombin Time 17.6 sec (12.0-14.7)
[2020-12-22 05:50] LABS: #Eosinphils 0.1 thou/uL (0.0-0.7); #Lymphocytes 0.3 thou/uL (1.20-3.40); #Monocytes 0.2 thou/uL (0.11-0.59); #Neutrophils 1.4 thou/uL (1.40-6.50); %Basophils 0.3 % (0.0-1.0); %Eosinophils 6.8 % (0.0-10.0); %Lymphocytes 14.4 % (21.0-51.0); %Monocytes 11.2 % (0.0-10.0); %Neutrophils 67.3 % (42.0-75.0); Reflex for Review?? NO
[2020-12-22 06:15] LABS: ALT (SGPT) 22 U/L (8-55); AST (SGOT) 62 U/L (5-34); Albumin 3.4 g/dL (3.5-5.0); Alkaline Phosphatase 154 U/L (40-110); Bilirubin, Direct 0.9 mg/dL (0.1-0.3); Bilirubin, Total 1.4 mg/dL (0.2-1.2); Protein, Total 6.9 g/dL (6.0-8.3)
[2020-12-22 06:17] LABS: Anion Gap 14 mmol/L (10-20); BUN (Urea Nitrogen) 9 mg/dL (8.4-25.7); Calc. Creatinine Clearance 140 mL/min (70-130); Carbon Dioxide 19 mmol/L (22-29); Chloride 103 mmol/L (98-107); Glucose 76 mg/dL (70-105); Magnesium 1.2 mg/dL (1.6-2.6); Potassium 3.7 mmol/L (3.5-5.1); Sodium 132 mmol/L (136-145)
[2020-12-22 07:51] LABS: Hemoglobin 8.9 g/dL (14.0-18.0)
[2020-12-22] MEDS: Nadolol 40 MG TAB PO SCH (10:16)
[2020-12-22] MEDS: Folic Acid 1 MG TAB PO SCH (10:16)
[2020-12-22] MEDS: Magnesium Oxide 400 MG TAB PO SCH (10:16)
[2020-12-22] MEDS: Pantoprazole 40 MG VIAL IVP SCH ×2 (10:17→20:00)
[2020-12-22] MEDS ORDERED: PROPOFOL 200 MG/20 ML VIAL ONE (11:55)
[2020-12-22] MEDS ORDERED: Lidocaine 1% PF 5 ML VIAL ONE (11:55)
[2020-12-22] MEDS ORDERED: Midazolam HCl 2 mg/2 ml Vial ONE (11:57)
[2020-12-22] MEDS ORDERED: Promethazine HCl 25 MG/ML VIAL IM PRN (12:03)
[2020-12-22] MEDS ORDERED: Ondansetron HCl/PF 4 MG/2 ML Vial IVP PRN (12:03)
[2020-12-22] MEDS ORDERED: Promethazine HCl 25 MG/ML VIAL SLOW IVP PRN (12:03)
[2020-12-22] MEDS: Clindamycin/D5W 600 MG in Premix Bag 1 BAG IVPB SCH ×2 (14:37→21:27)
[2020-12-22] MEDS: Morphine 4 MG/ML VIAL SLOW IVP PRN (15:37)
[2020-12-22] MEDS: Hydrocortisone Acetate 25 MG Suppository PR SCH (20:00)
[2020-12-23] MEDS: Clindamycin/D5W 600 MG in Premix Bag 1 BAG IVPB SCH ×2 (05:24→14:17)
[2020-12-23 05:32] LABS: #Eosinphils 0.1 thou/uL (0.0-0.7); #Lymphocytes 0.4 thou/uL (1.20-3.40); #Monocytes 0.3 thou/uL (0.11-0.59); #Neutrophils 2.2 thou/uL (1.40-6.50); %Eosinophils 4.4 % (0.0-10.0); %Lymphocytes 11.5 % (21.0-51.0); %Monocytes 10.7 % (0.0-10.0); %Neutrophils 73.5 % (42.0-75.0); Hemoglobin 9.1 g/dL (14.0-18.0); Mean Corpuscular HGB CONC 33.2 g/dL (32.0-36.0); Mean Corpuscular Hemoglobin 32.3 pg (27.0-31.0); Mean Corpuscular Volume 97.2 fL (78.0-98.0); Mean Platelet Volume 8.7 fL (7.4-10.4); Platelet Count 30 thou/uL (130-400); RBC Distribution Width 13.4 % (11.5-14.5); Red Blood Cell (RBC) Count 2.83 mill/uL (4.70-6.10)
[2020-12-23 05:47] LABS: Anion Gap 13 mmol/L (10-20); BUN (Urea Nitrogen) 8 mg/dL (8.4-25.7); Calc. Creatinine Clearance 134 mL/min (70-130); Calcium 7.7 mg/dL (7.8-10.44); Carbon Dioxide 20 mmol/L (22-29); Chloride 102 mmol/L (98-107); Glucose 103 mg/dL (70-105); Magnesium 1.3 mg/dL (1.6-2.6); Potassium 3.5 mmol/L (3.5-5.1); Sodium 131 mmol/L (136-145)
[2020-12-23 05:52] LABS: ALT (SGPT) 21 U/L (8-55); AST (SGOT) 59 U/L (5-34); Albumin 3.3 g/dL (3.5-5.0); Alkaline Phosphatase 146 U/L (40-110); Bilirubin, Direct 0.8 mg/dL (0.1-0.3); Bilirubin, Total 1.3 mg/dL (0.2-1.2); Protein, Total 6.9 g/dL (6.0-8.3)
[2020-12-23] MEDS: Magnesium Oxide 400 MG TAB PO SCH (08:20)
[2020-12-23] MEDS: Folic Acid 1 MG TAB PO SCH (08:20)
[2020-12-23] MEDS: Pantoprazole 40 MG VIAL IVP SCH (08:20)
[2020-12-23] MEDS: Nadolol 40 MG TAB PO SCH (08:21)
[2020-12-23] MEDS: Hydrocortisone Acetate 25 MG Suppository PR SCH (08:21)
[2020-12-23] MEDS ORDERED: Multivit, Therapeutic 1 TAB PO SCH (09:00)
[2020-12-23] MEDS: Morphine 4 MG/ML VIAL SLOW IVP PRN ×2 (12:28→14:11)
[2020-12-23 17:13] VITALS: BP 130/62; TEMP 99.2
== END 2020-12-23 18:08 | disposition home or self-care (01) | DRG 394 ==
LOC: 2SW 17:41 → OBSVTOIN 22:48
PROVIDERS: ADMIT Family Medicine; ATTEND Internal Medicine
PROC: 06L38CZ Occlusion of Esophageal Vein with Extraluminal Device, Via Natural or Artificial Opening Endoscopic (ICD-10-PCS; principal; 2020-12-22)
PROC: 0DJD8ZZ Inspection of Lower Intestinal Tract, Via Natural or Artificial Opening Endoscopic (ICD-10-PCS; 2020-12-22)
DX: K64.8 Other hemorrhoids (principal); I85.10 Secondary esophageal varices without bleeding; D61.818 Other pancytopenia; K76.6 Portal hypertension; E87.1 Hypo-osmolality and hyponatremia; L03.116 Cellulitis of left lower limb; I10 Essential (primary) hypertension; E78.5 Hyperlipidemia, unspecified; I73.9 Peripheral vascular disease, unspecified; G89.29 Other chronic pain; F10.10 Alcohol abuse, uncomplicated; F17.210 Nicotine dependence, cigarettes, uncomplicated; R19.7 Diarrhea, unspecified; L25.9 Unspecified contact dermatitis, unspecified cause; K70.30 Alcoholic cirrhosis of liver without ascites; K31.89 Other diseases of stomach and duodenum; K21.9 Gastro-esophageal reflux disease without esophagitis; E83.42 Hypomagnesemia; E88.09 Other disorders of plasma-protein metabolism, not elsewhere classified; Z20.822 Contact with and (suspected) exposure to COVID-19
CPT/HCPCS: 36415; 76705; 80048; 80076; 82105; 83735; 85025; 85610; 85730; 87045; 87046; 87324; 87427; 87449; 87635; C9113; J2250; J2270; J2704; J3411; J3490; U0003; U0005

== ENCOUNTER 2021-01-06 19:21 | Inpatient (IN) | payer OTHER, MEDICARE ==
[2021-01-06] MEDS ORDERED: Morphine 4 MG/ML VIAL ONE (19:53)
[2021-01-06] MEDS ORDERED: Ondansetron PF 4 MG/2 ML Vial ONE (19:53)
[2021-01-06] MEDS ORDERED: Acetaminophen 500 MG TAB ONE (19:53)
[2021-01-06 20:33] LABS: #Eosinphils 2.3 thou/uL (0.0-0.7); #Lymphocytes 0.8 thou/uL (1.20-3.40); #Monocytes 0.8 thou/uL (0.11-0.59); %Basophils 0.1 % (0.0-1.0); %Eosinophils 21.2 % (0.0-10.0); %Lymphocytes 7.4 % (21.0-51.0); %Monocytes 7.4 % (0.0-10.0); %Neutrophils 63.9 % (42.0-75.0); Hemoglobin 11.7 g/dL (14.0-18.0); Mean Corpuscular HGB CONC 32.6 g/dL (32.0-36.0); Mean Corpuscular Hemoglobin 31.7 pg (27.0-31.0); Mean Corpuscular Volume 97.2 fL (78.0-98.0); Mean Platelet Volume 7.4 fL (7.4-10.4); Platelet Count 140 thou/uL (130-400); RBC Distribution Width 13.8 % (11.5-14.5); Red Blood Cell (RBC) Count 3.68 mill/uL (4.70-6.10)
[2021-01-06] MEDS ORDERED: Vancomycin 1 GM/200 ML BAG ONE (20:43)
[2021-01-06 20:52] LABS: Acetaminophen Less than 6.0 mcg/mL (10.0-30.0); Alcohol Less than 10 mg/dL (Less than 10); CRP (Inflammatory) 0.63 mg/dL (= or < 0.5); Magnesium 1.5 mg/dL (1.6-2.6); Salicylate Less than 8.0 mg/dL (15.0-30.0)
[2021-01-06 20:53] LABS: ALT (SGPT) 39 U/L (8-55); AST (SGOT) 53 U/L (5-34); Albumin 3.3 g/dL (3.5-5.0); Alkaline Phosphatase 139 U/L (40-110); Anion Gap 17 mmol/L (10-20); BUN (Urea Nitrogen) 13 mg/dL (8.4-25.7); Bilirubin, Total 1.9 mg/dL (0.2-1.2); Calc. Creatinine Clearance 0 mL/min (70-130); Calcium 7.9 mg/dL (7.8-10.44); Carbon Dioxide 19 mmol/L (22-29); Chloride 104 mmol/L (98-107); Globulin 3.5 g/dL (2.4-3.5); Glucose 104 mg/dL (70-105); Potassium 3.9 mmol/L (3.5-5.1); Protein, Total 6.8 g/dL (6.0-8.3); Sodium 136 mmol/L (136-145)
[2021-01-06 23:21] LABS: Lactic Acid 2.2 mmol/L (0.5-2.2)
[2021-01-06 23:37] LABS: Bacteria/HPF None Seen HPF (None Seen); Bilirubin Negative (Negative); Blood, Urine Negative (Negative); Clarity Clear (Clear); Glucose, Urine (Dipstick) Normal (Negative); Ketone, Urine Negative (Negative); Leukocyte 75 Leu/uL (Negative); Mucous/LPF 1+ LPF (<2+); Nitrite Negative (Negative); Protein, Urine (Dipstick) 10 mg/dL (Neg-Trace); RBC/HPF 0-3 HPF (0-3); Specific Gravity, Urine 1.018 (1.002-1.036); Squamous Epithelial 0-3 HPF (0-3); Urobilinogen Normal mg/dL (Less than 2); WBC/HPF 0-3 HPF (0-3); pH, Urine 6.5 (5.0-9.0)
[2021-01-06] MEDS ORDERED: Acetaminophen 325 MG TAB PO PRN ×2 (23:45→23:58)
[2021-01-06] MEDS ORDERED: Ondansetron PF 4 MG/2 ML Vial IVP PRN ×2 (23:45→23:58)
[2021-01-06] MEDS ORDERED: Ondansetron ODT 4 MG TAB SL PRN (23:45)
[2021-01-06 23:46] LABS: Amphetamine Not Detected (NotDetected); Barbiturates Screen Detected (NotDetected); Benzodiazepine Screen Not Detected (NotDetected); Cocaine Metabolite Screen Not Detected (NotDetected); Medtox Control Line Valid? VALID (VALID); Medtox Reader # READER 4; Methadone Not Detected (NotDetected); Methamphetamine Not Detected (NotDetected); Opiate Screen Detected (NotDetected); Oxycodone Screen Not Detected (NotDetected); Phencyclidine (PCP) Not Detected (NotDetected); THC/Cannabinoid Screen Not Detected (NotDetected); Tricyclic Screen Not Detected (NotDetected)
[2021-01-06] MEDS ORDERED: Ondansetron ODT 4 MG TAB PO PRN (23:58)
[2021-01-07] MEDS ORDERED: hydrALAZINE 20 MG/ML VIAL SLOW IVP PRN (00:05)
[2021-01-07] MEDS ORDERED: Clobetasol 0.05% Cream 15 gm Tube TOP PRN (00:16)
[2021-01-07 00:18] VITALS: BMI 23.7
[2021-01-07 00:40] LABS: HBCM Index 0.08 S/CO (0-0.79); HBSAg Index 0.21 S/CO (0-0.99); Hep A IgM AB Non-Reactive (NonReactive); Hep A IgM S/CO 0.04 S/CO (0-0.79); Hep B Surf Ag Non-Reactive S/CO (NonReactive); Hep C IgG Ab Non-Reactive (NonReactive); Hepatitis B Core IgM Abs Non-Reactive (NonReactive)
[2021-01-07 02:09] LABS: Hemoglobin 11.9 g/dL (14.0-18.0); Mean Corpuscular Hemoglobin 31.4 pg (27.0-31.0); Mean Corpuscular Volume 97.9 fL (78.0-98.0); RBC Distribution Width 13.7 % (11.5-14.5); Red Blood Cell (RBC) Count 3.79 mill/uL (4.70-6.10); White Blood Cell (WBC) Count 8.8 thou/uL (4.8-10.8)
[2021-01-07 02:26] LABS: MDiff Complete? YES; Mean Platelet Volume 7.4 fL (7.4-10.4); Platelet Count 119 thou/uL (130-400)
[2021-01-07 02:27] LABS: Band 7 % (5-11); Eosinophils 18 % (0-10); Hypochromia SLIGHT = 6-15 cells (100X) (0-5/hpf); Lymphocytes 8 % (21-51); Monocytes 9 % (0-10); Neutrophil 58 % (42-75); Platelet Morphology Comment Appears Decreased
[2021-01-07 02:29] LABS: Troponin I 0.013 ng/mL (< 0.028)
[2021-01-07 02:30] LABS: ALT (SGPT) 34 U/L (8-55); AST (SGOT) 46 U/L (5-34); Alkaline Phosphatase 130 U/L (40-110); Anion Gap 16 mmol/L (10-20); BUN (Urea Nitrogen) 12 mg/dL (8.4-25.7); Bilirubin, Total 1.6 mg/dL (0.2-1.2); Calc. Creatinine Clearance 91 mL/min (70-130); Calcium 7.6 mg/dL (7.8-10.44); Carbon Dioxide 17 mmol/L (22-29); Chloride 106 mmol/L (98-107); Globulin 3.2 g/dL (2.4-3.5); Glucose 120 mg/dL (70-105); Magnesium 1.5 mg/dL (1.6-2.6); Potassium 3.8 mmol/L (3.5-5.1); Protein, Total 6.2 g/dL (6.0-8.3); Sodium 135 mmol/L (136-145)
[2021-01-07 02:36] LABS: Phosphorus 3.2 mg/dL (2.3-4.7)
[2021-01-07] MEDS ORDERED: Magnesium 5 GM/10 ML VIAL IM SCH (02:45)
[2021-01-07] MEDS: Lactated Ringer's 1,000 ML IV SCH ×4 (03:26→17:47)
[2021-01-07] MEDS ORDERED: Bacitracin 1 PK ONE (07:57)
[2021-01-07] MEDS ORDERED: Enoxaparin Sodium 40 MG/0.4 ML SYRINGE ONE (10:20)
[2021-01-07] MEDS ORDERED: Thiamine 100 MG TAB ONE (10:20)
[2021-01-07] MEDS ORDERED: Lidocaine 1% (PF) 30 ML VIAL ONE (10:23)
[2021-01-07] MEDS ORDERED: hydrOXYzine 25 MG TAB ONE (10:29)
[2021-01-07] MEDS: hydrOXYzine 25 MG TAB PO PRN (10:32)
[2021-01-07] MEDS: Thiamine 100 MG TAB PO SCH (10:33)
[2021-01-07] MEDS: Multivitamin W/ Minerals 1 TAB PO SCH (10:50)
[2021-01-07] MEDS: Magnesium Oxide 400 MG TAB PO SCH (10:50)
[2021-01-07] MEDS: Nadolol 40 MG TAB PO SCH (10:50)
[2021-01-07] MEDS: Nicotine 14 MG PATCH TD SCH (10:51)
[2021-01-07] MEDS: Enoxaparin Sodium 40 MG/0.4 ML SYRINGE SC SCH (10:51)
[2021-01-07 11:36] LABS: SARS-CoV-2 NAA Rapid Test Not Detected (NotDetected)
[2021-01-07] MEDS ORDERED: methylPREDNISolone Sod Succ 40 MG VIAL IVP SCH (13:45)
[2021-01-07] MEDS ORDERED: Acetaminophen 500 MG TAB PO SCH (13:45)
[2021-01-07] MEDS ORDERED: diphenhydrAMINE 50 MG/ML VIAL IVP SCH (13:45)
[2021-01-07] MEDS: predniSONE 5 MG TAB PO SCH (17:43)
[2021-01-07] MEDS ORDERED: Cetirizine HCl 10 MG TAB PO SCH (21:00)
[2021-01-07] MEDS: Loratadine 10 MG TAB PO SCH (21:47)
[2021-01-07] MEDS: Acetaminophen 500 MG TAB PO SCH (21:48)
[2021-01-07] MEDS: Nystatin Cream 15 GM TUBE TOP SCH (21:50)
[2021-01-08] MEDS: Nicotine 14 MG PATCH TD SCH (01:02)
[2021-01-08] MEDS: Acetaminophen 500 MG TAB PO SCH ×3 (02:05→14:24)
[2021-01-08] MEDS: Lactated Ringer's 1,000 ML IV SCH (03:50)
[2021-01-08 08:19] LABS: ALT (SGPT) 24 U/L (8-55); AST (SGOT) 30 U/L (5-34); Albumin 2.7 g/dL (3.5-5.0); Alkaline Phosphatase 114 U/L (40-110); Anion Gap 14 mmol/L (10-20); BUN (Urea Nitrogen) 14 mg/dL (8.4-25.7); Bilirubin, Total 1.1 mg/dL (0.2-1.2); Calc. Creatinine Clearance 121 mL/min (70-130); Calcium 7.3 mg/dL (7.8-10.44); Carbon Dioxide 20 mmol/L (22-29); Chloride 107 mmol/L (98-107); Globulin 2.6 g/dL (2.4-3.5); Glucose 83 mg/dL (70-105); Potassium 3.9 mmol/L (3.5-5.1); Protein, Total 5.3 g/dL (6.0-8.3); Sodium 137 mmol/L (136-145)
[2021-01-08 09:06] LABS: #Eosinphils 0.5 thou/uL (0.0-0.7); #Monocytes 0.5 thou/uL (0.11-0.59); #Neutrophils 3.9 thou/uL (1.40-6.50); %Basophils 0.1 % (0.0-1.0); %Eosinophils 8.1 % (0.0-10.0); %Lymphocytes 16.8 % (21.0-51.0); %Monocytes 8.8 % (0.0-10.0); %Neutrophils 66.2 % (42.0-75.0); Mean Corpuscular HGB CONC 32.2 g/dL (32.0-36.0); Mean Corpuscular Hemoglobin 31.7 pg (27.0-31.0); Mean Corpuscular Volume 98.3 fL (78.0-98.0); Mean Platelet Volume 7.1 fL (7.4-10.4); Platelet Count 102 thou/uL (130-400); Platelet Morphology Comment Appears Decreased; RBC Distribution Width 13.7 % (11.5-14.5); RBC Morphology Normal; Red Blood Cell (RBC) Count 3.15 mill/uL (4.70-6.10); White Blood Cell (WBC) Count 5.9 thou/uL (4.8-10.8)
[2021-01-08] MEDS: predniSONE 5 MG TAB PO SCH (09:13)
[2021-01-08] MEDS: Loratadine 10 MG TAB PO SCH (09:13)
[2021-01-08] MEDS: Nadolol 40 MG TAB PO SCH (09:13)
[2021-01-08] MEDS: hydrOXYzine 25 MG TAB PO PRN ×2 (09:13→14:24)
[2021-01-08] MEDS: Magnesium Oxide 400 MG TAB PO SCH (09:14)
[2021-01-08] MEDS: Multivitamin W/ Minerals 1 TAB PO SCH (09:14)
[2021-01-08] MEDS: Thiamine 100 MG TAB PO SCH (09:14)
[2021-01-08] MEDS: Enoxaparin Sodium 40 MG/0.4 ML SYRINGE SC SCH (09:15)
[2021-01-08] MEDS: Nystatin Cream 15 GM TUBE TOP SCH (09:15)
[2021-01-08 14:45] VITALS: BP 112/66; TEMP 97.8
== END 2021-01-08 14:36 | disposition home or self-care (01) | DRG 815 ==
LOC: ERS 19:21 → ERHOLD 23:32 → OBSVTOIN 23:32 → T4-A 01-07 12:17
PROVIDERS: ADMIT Family Medicine; ATTEND Family Medicine
PROC: 0HBHXZX Excision of Right Upper Leg Skin, External Approach, Diagnostic (ICD-10-PCS; principal; 2021-01-07)
DX: D72.12 Drug rash with eosinophilia and systemic symptoms syndrome (principal); I85.10 Secondary esophageal varices without bleeding; B37.89 Other sites of candidiasis; E44.1 Mild protein-calorie malnutrition; L27.1 Localized skin eruption due to drugs and medicaments taken internally; I10 Essential (primary) hypertension; F17.210 Nicotine dependence, cigarettes, uncomplicated; K70.30 Alcoholic cirrhosis of liver without ascites; D64.9 Anemia, unspecified; T36.8X5A Adverse effect of other systemic antibiotics, initial encounter; Y92.89 Other specified places as the place of occurrence of the external cause; Z68.23 Body mass index [BMI] 23.0-23.9, adult
CPT/HCPCS: 36415; 71045; 80053; 80074; 80306; 80307; 81003; 81015; 82150; 82550; 82607; 82746; 83605; 83690; 83735; 84100; 84484; 85007; 85025; 85027; 85060; 86140; 87040; 87086; 88305; 88312; 93005; 96365; 96366; 96375; J1200; J1650; J2001; J2270; J2405; J2920; J3370; J3475; J7512; U0002; U0003; U0005

== ENCOUNTER 2021-01-11 00:13 | Inpatient (IN) | payer MEDICARE ==
[2021-01-11] MEDS ORDERED: HYDROcodone/Acetaminophen 5/325 mg Tablet PO PRN ×3 (02:05→08:05)
[2021-01-11] MEDS ORDERED: Ondansetron ODT 4 MG TAB SL PRN (02:15)
[2021-01-11] MEDS ORDERED: Acetaminophen 325 MG TAB PO PRN (02:15)
[2021-01-11] MEDS ORDERED: Ondansetron PF 4 MG/2 ML Vial IVP PRN ×2 (02:15→08:05)
[2021-01-11] MEDS ORDERED: Sodium Chloride 0.9% 1,000 ML IV SCH (02:15)
[2021-01-11 02:26] VITALS: BMI 27.8
[2021-01-11] MEDS ORDERED: Clindamycin/D5W 600 MG in Premix Bag 1 BAG IVPB SCH (03:00)
[2021-01-11] MEDS ORDERED: hydrOXYzine 25 MG TAB PO PRN (03:41)
[2021-01-11] MEDS ORDERED: diphenhydrAMINE 50 MG/ML VIAL IVP SCH ×2 (04:00→08:30)
[2021-01-11 05:18] LABS: #Eosinphils 0.5 thou/uL (0.0-0.7); #Monocytes 0.6 thou/uL (0.11-0.59); #Neutrophils 2.9 thou/uL (1.40-6.50); %Basophils 0.9 % (0.0-1.0); %Eosinophils 9.9 % (0.0-10.0); %Lymphocytes 19.8 % (21.0-51.0); %Monocytes 11.4 % (0.0-10.0); Hemoglobin 10.8 g/dL (14.0-18.0); Mean Corpuscular HGB CONC 33.5 g/dL (32.0-36.0); Mean Corpuscular Hemoglobin 32.5 pg (27.0-31.0); Mean Corpuscular Volume 97.1 fL (78.0-98.0); Mean Platelet Volume 7.7 fL (7.4-10.4); Platelet Count 71 thou/uL (130-400); RBC Distribution Width 14.2 % (11.5-14.5); Red Blood Cell (RBC) Count 3.32 mill/uL (4.70-6.10)
[2021-01-11 05:44] LABS: Lactic Acid 2.4 mmol/L (0.5-2.2)
[2021-01-11 05:53] LABS: Anion Gap 11 mmol/L (10-20); BUN (Urea Nitrogen) 12 mg/dL (8.4-25.7); Calc. Creatinine Clearance 129 mL/min (70-130); Calcium 6.6 mg/dL (7.8-10.44); Carbon Dioxide 20 mmol/L (22-29); Chloride 107 mmol/L (98-107); Glucose 112 mg/dL (70-105); Potassium 3.9 mmol/L (3.5-5.1); Sodium 134 mmol/L (136-145)
[2021-01-11] MEDS ORDERED: Cefepime 2 GM in Sodium Chloride 0.9% 100 ML IVPB SCH (08:00)
[2021-01-11] MEDS ORDERED: hydrALAZINE 20 MG/ML VIAL SLOW IVP PRN (08:05)
[2021-01-11] MEDS ORDERED: Zolpidem Tartrate 5 MG TAB PO PRN (08:05)
[2021-01-11] MEDS ORDERED: Sodium Chloride 0.65% Nasal 44 ML BOT EA NARE PRN (08:05)
[2021-01-11] MEDS ORDERED: Senokot S 8.6-50 MG TAB PO PRN (08:05)
[2021-01-11] MEDS ORDERED: Ondansetron ODT 4 MG TAB PO PRN (08:05)
[2021-01-11] MEDS ORDERED: GUAIFENESIN SF SOLN 200 MG/10 ML UDCUP PO PRN (08:05)
[2021-01-11] MEDS ORDERED: Cepastat Lozenges 1 LOZ PO PRN (08:05)
[2021-01-11] MEDS ORDERED: Loperamide HCl 2 MG CAP PO PRN (08:05)
[2021-01-11] MEDS ORDERED: Bisacodyl 5 MG TAB PO PRN (08:05)
[2021-01-11] MEDS: Famotidine 20 MG TAB PO SCH ×2 (08:51→21:20)
[2021-01-11] MEDS: Primidone 50 MG TAB PO SCH ×2 (08:52→21:19)
[2021-01-11] MEDS: Nadolol 40 MG TAB PO SCH (08:52)
[2021-01-11] MEDS: hydrOXYzine 25 MG TAB PO SCH ×2 (08:52→12:29)
[2021-01-11] MEDS: Spironolactone 25 MG TAB PO SCH (08:52)
[2021-01-11] MEDS: Loratadine 10 MG TAB PO SCH (08:52)
[2021-01-11] MEDS: methylPREDNISolone Sod Succ/PF 125 MG/2 ML VIAL IVP SCH (08:53)
[2021-01-11] MEDS: Lactated Ringer's 1,000 ML IV SCH ×2 (08:54→17:43)
[2021-01-11] MEDS ORDERED: Cetirizine HCl 10 MG TAB PO SCH (09:00)
[2021-01-11] MEDS ORDERED: Enoxaparin Sodium 40 MG/0.4 ML SYRINGE SC SCH (09:00)
[2021-01-11] MEDS ORDERED: Non-Formulary Item 1 EACH (Nadolol [Corgard] 20 MG Tab) PO SCH (09:00)
[2021-01-11] MEDS: Nystatin Cream 15 GM TUBE TOP SCH ×2 (09:15→21:22)
[2021-01-11 13:07] LABS: Lactic Acid 3.6 mmol/L (0.5-2.2)
[2021-01-11] MEDS ORDERED: Lactated Ringer's 500 ML IV SCH (13:30)
[2021-01-11] MEDS ORDERED: Lactated Ringer's 1,000 ML IV SCH (13:30)
[2021-01-11] MEDS: hydrOXYzine 10 MG/5 ML UDCUP PO SCH ×2 (17:52→21:20)
[2021-01-11 20:07] LABS: Lactic Acid 2.7 mmol/L (0.5-2.2)
[2021-01-11] MEDS: Montelukast Sodium 10 mg Tablet PO SCH (21:20)
[2021-01-12] MEDS: Lactated Ringer's 1,000 ML IV SCH ×4 (02:18→21:42)
[2021-01-12 06:20] LABS: #Eosinphils 0.6 thou/uL (0.0-0.7); #Lymphocytes 1.2 thou/uL (1.20-3.40); #Monocytes 0.5 thou/uL (0.11-0.59); #Neutrophils 2.5 thou/uL (1.40-6.50); %Basophils 0.3 % (0.0-1.0); %Lymphocytes 24.8 % (21.0-51.0); %Monocytes 9.4 % (0.0-10.0); %Neutrophils 52.5 % (42.0-75.0); Hemoglobin 9.4 g/dL (14.0-18.0); Mean Corpuscular HGB CONC 32.9 g/dL (32.0-36.0); Mean Corpuscular Hemoglobin 32.4 pg (27.0-31.0); Mean Corpuscular Volume 98.5 fL (78.0-98.0); Mean Platelet Volume 8.2 fL (7.4-10.4); Platelet Count 68 thou/uL (130-400); RBC Distribution Width 14.1 % (11.5-14.5); Red Blood Cell (RBC) Count 2.88 mill/uL (4.70-6.10); White Blood Cell (WBC) Count 4.7 thou/uL (4.8-10.8)
[2021-01-12 06:40] LABS: Anion Gap 9 mmol/L (10-20); BUN (Urea Nitrogen) 11 mg/dL (8.4-25.7); Calc. Creatinine Clearance 138 mL/min (70-130); Calcium 6.8 mg/dL (7.8-10.44); Carbon Dioxide 21 mmol/L (22-29); Chloride 109 mmol/L (98-107); Glucose 90 mg/dL (70-105); Potassium 3.6 mmol/L (3.5-5.1); Sodium 135 mmol/L (136-145)
[2021-01-12 06:41] LABS: ALT (SGPT) 22 U/L (8-55); AST (SGOT) 23 U/L (5-34); Albumin 2.4 g/dL (3.5-5.0); Alkaline Phosphatase 108 U/L (40-110); Bilirubin, Direct 0.5 mg/dL (0.1-0.3); Bilirubin, Total 0.7 mg/dL (0.2-1.2); CRP (Inflammatory) 1.41 mg/dL (= or < 0.5); Protein, Total 4.7 g/dL (6.0-8.3)
[2021-01-12 07:34] LABS: Lactic Acid 2.5 mmol/L (0.5-2.2)
[2021-01-12] MEDS: VANCOMYCIN 1.75 GM/350 ML BAG 1.75 GM in Premix Bag 1 BAG IVPB SCH ×2 (08:20→21:44)
[2021-01-12] MEDS: Loratadine 10 MG TAB PO SCH (08:21)
[2021-01-12] MEDS: Famotidine 20 MG TAB PO SCH ×2 (08:21→21:42)
[2021-01-12] MEDS: Nadolol 40 MG TAB PO SCH (08:22)
[2021-01-12] MEDS: Nystatin Cream 15 GM TUBE TOP SCH ×2 (08:26→21:44)
[2021-01-12] MEDS: Primidone 50 MG TAB PO SCH ×2 (08:27→21:42)
[2021-01-12] MEDS: hydrOXYzine 10 MG/5 ML UDCUP PO SCH ×4 (08:29→21:43)
[2021-01-12] MEDS: methylPREDNISolone Sod Succ/PF 125 MG/2 ML VIAL IVP SCH (08:30)
[2021-01-12] MEDS: Spironolactone 25 MG TAB PO SCH (09:06)
[2021-01-12] MEDS: Montelukast Sodium 10 mg Tablet PO SCH (21:42)
[2021-01-13] MEDS: Lactated Ringer's 1,000 ML IV SCH ×3 (06:08→21:18)
[2021-01-13 07:36] LABS: #Basophils 0.1 thou/uL (0.0-0.2); #Eosinphils 0.5 thou/uL (0.0-0.7); #Lymphocytes 1.5 thou/uL (1.20-3.40); #Monocytes 0.6 thou/uL (0.11-0.59); #Neutrophils 2.1 thou/uL (1.40-6.50); %Basophils 1.2 % (0.0-1.0); %Eosinophils 10.2 % (0.0-10.0); %Lymphocytes 31.5 % (21.0-51.0); Hemoglobin 9.6 g/dL (14.0-18.0); Mean Corpuscular HGB CONC 33.2 g/dL (32.0-36.0); Mean Corpuscular Hemoglobin 32.1 pg (27.0-31.0); Mean Corpuscular Volume 96.6 fL (78.0-98.0); Mean Platelet Volume 8.1 fL (7.4-10.4); Platelet Count 59 thou/uL (130-400); RBC Distribution Width 14.2 % (11.5-14.5); Red Blood Cell (RBC) Count 2.99 mill/uL (4.70-6.10); White Blood Cell (WBC) Count 4.7 thou/uL (4.8-10.8)
[2021-01-13 07:39] LABS: Anion Gap 8 mmol/L (10-20); BUN (Urea Nitrogen) 10 mg/dL (8.4-25.7); Calc. Creatinine Clearance 159 mL/min (70-130); Calcium 7.4 mg/dL (7.8-10.44); Carbon Dioxide 23 mmol/L (22-29); Chloride 110 mmol/L (98-107); Glucose 74 mg/dL (70-105); Sodium 137 mmol/L (136-145)
[2021-01-13 08:51] LABS: Lactic Acid 2.4 mmol/L (0.5-2.2)
[2021-01-13] MEDS: Loratadine 10 MG TAB PO SCH (09:11)
[2021-01-13] MEDS: Spironolactone 25 MG TAB PO SCH (09:11)
[2021-01-13] MEDS: Nadolol 40 MG TAB PO SCH (09:12)
[2021-01-13] MEDS: Nystatin Cream 15 GM TUBE TOP SCH ×2 (09:12→21:17)
[2021-01-13] MEDS: Famotidine 20 MG TAB PO SCH ×2 (09:12→21:16)
[2021-01-13] MEDS: Primidone 50 MG TAB PO SCH ×2 (09:12→21:17)
[2021-01-13] MEDS: methylPREDNISolone Sod Succ/PF 125 MG/2 ML VIAL IVP SCH (09:13)
[2021-01-13] MEDS: VANCOMYCIN 1.75 GM/350 ML BAG 1.75 GM in Premix Bag 1 BAG IVPB SCH ×2 (09:13→21:17)
[2021-01-13] MEDS: hydrOXYzine 10 MG/5 ML UDCUP PO SCH ×4 (09:14→21:24)
[2021-01-13 20:35] LABS: Vancomycin, Trough 17.4 ug/mL
[2021-01-13] MEDS: Montelukast Sodium 10 mg Tablet PO SCH (21:17)
[2021-01-14] MEDS: Lactated Ringer's 1,000 ML IV SCH ×3 (05:15→23:05)
[2021-01-14 06:38] LABS: #Eosinphils 0.3 thou/uL (0.0-0.7); #Lymphocytes 1.8 thou/uL (1.20-3.40); #Monocytes 0.8 thou/uL (0.11-0.59); #Neutrophils 3.5 thou/uL (1.40-6.50); %Basophils 0.7 % (0.0-1.0); %Eosinophils 4.5 % (0.0-10.0); %Lymphocytes 28.3 % (21.0-51.0); %Monocytes 12.9 % (0.0-10.0); %Neutrophils 53.7 % (42.0-75.0); Hemoglobin 10.3 g/dL (14.0-18.0); Mean Corpuscular HGB CONC 32.9 g/dL (32.0-36.0); Mean Corpuscular Hemoglobin 31.8 pg (27.0-31.0); Mean Corpuscular Volume 96.7 fL (78.0-98.0); Mean Platelet Volume 7.9 fL (7.4-10.4); Platelet Count 65 thou/uL (130-400); RBC Distribution Width 14.2 % (11.5-14.5); Red Blood Cell (RBC) Count 3.23 mill/uL (4.70-6.10); White Blood Cell (WBC) Count 6.5 thou/uL (4.8-10.8)
[2021-01-14 06:42] LABS: Lactic Acid 1.6 mmol/L (0.5-2.2)
[2021-01-14 06:45] LABS: Anion Gap 10 mmol/L (10-20); BUN (Urea Nitrogen) 10 mg/dL (8.4-25.7); Calc. Creatinine Clearance 159 mL/min (70-130); Calcium 7.5 mg/dL (7.8-10.44); Carbon Dioxide 22 mmol/L (22-29); Chloride 109 mmol/L (98-107); Glucose 92 mg/dL (70-105); Potassium 4.1 mmol/L (3.5-5.1); Sodium 137 mmol/L (136-145)
[2021-01-14] MEDS ORDERED: Hydrocerin (Eucerin) Cream 120 gm Jar TOP PRN (08:11)
[2021-01-14] MEDS: Famotidine 20 MG TAB PO SCH ×2 (09:00→20:33)
[2021-01-14] MEDS: Primidone 50 MG TAB PO SCH ×2 (09:00→20:33)
[2021-01-14] MEDS: VANCOMYCIN 1.75 GM/350 ML BAG 1.75 GM in Premix Bag 1 BAG IVPB SCH ×2 (09:00→20:35)
[2021-01-14] MEDS: Loratadine 10 MG TAB PO SCH (09:01)
[2021-01-14] MEDS: Nadolol 40 MG TAB PO SCH (09:01)
[2021-01-14] MEDS: Spironolactone 25 MG TAB PO SCH (09:01)
[2021-01-14] MEDS: hydrOXYzine 10 MG/5 ML UDCUP PO SCH ×4 (09:01→20:32)
[2021-01-14] MEDS: Nystatin Cream 15 GM TUBE TOP SCH ×2 (09:02→20:34)
[2021-01-14] MEDS: methylPREDNISolone Sod Succ/PF 125 MG/2 ML VIAL IVP SCH (09:02)
[2021-01-14] MEDS: Montelukast Sodium 10 mg Tablet PO SCH (20:33)
[2021-01-15 08:34] LABS: Vancomycin, Trough 23.4 ug/mL
[2021-01-15] MEDS: hydrOXYzine 10 MG/5 ML UDCUP PO SCH ×4 (09:00→22:00)
[2021-01-15] MEDS ORDERED: Vancomycin 1.5 GRAM/300 ML BAG 1.5 GM in Premix Bag 1 BAG IVPB SCH (09:00)
[2021-01-15] MEDS: Famotidine 20 MG TAB PO SCH ×2 (09:01→20:43)
[2021-01-15] MEDS: Spironolactone 25 MG TAB PO SCH (09:01)
[2021-01-15] MEDS: Nystatin Cream 15 GM TUBE TOP SCH ×2 (09:03→23:45)
[2021-01-15] MEDS: Loratadine 10 MG TAB PO SCH (09:03)
[2021-01-15] MEDS: Primidone 50 MG TAB PO SCH ×2 (09:03→20:44)
[2021-01-15] MEDS: Nadolol 40 MG TAB PO SCH (09:04)
[2021-01-15] MEDS: methylPREDNISolone Sod Succ/PF 125 MG/2 ML VIAL IVP SCH (09:05)
[2021-01-15] MEDS: VANCOMYCIN 1.75 GM/350 ML BAG 1.75 GM in Premix Bag 1 BAG IVPB SCH (09:09)
[2021-01-15] MEDS: Vancomycin 1.5 GRAM/300 ML BAG 1.5 GM in Premix Bag 1 BAG IVPB SCH (12:15)
[2021-01-15] MEDS: Lactated Ringer's 1,000 ML IV SCH (17:39)
[2021-01-15] MEDS: Montelukast Sodium 10 mg Tablet PO SCH (20:44)
[2021-01-16] MEDS: Vancomycin 1.5 GRAM/300 ML BAG 1.5 GM in Premix Bag 1 BAG IVPB SCH ×2 (01:05→12:31)
[2021-01-16] MEDS: predniSONE 50 MG TAB PO SCH ×2 (08:52→17:01)
[2021-01-16] MEDS: Spironolactone 25 MG TAB PO SCH (08:52)
[2021-01-16] MEDS: Famotidine 20 MG TAB PO SCH ×2 (08:53→21:21)
[2021-01-16] MEDS: Nadolol 40 MG TAB PO SCH (08:56)
[2021-01-16] MEDS: hydrOXYzine 10 MG/5 ML UDCUP PO SCH ×4 (08:57→21:23)
[2021-01-16] MEDS: Loratadine 10 MG TAB PO SCH (08:57)
[2021-01-16] MEDS: Nystatin Cream 15 GM TUBE TOP SCH ×2 (08:58→21:23)
[2021-01-16] MEDS: Primidone 50 MG TAB PO SCH ×2 (08:58→21:22)
[2021-01-16 09:39] LABS: Anion Gap 10 mmol/L (10-20); BUN (Urea Nitrogen) 10 mg/dL (8.4-25.7); Calc. Creatinine Clearance 142 mL/min (70-130); Calcium 8.3 mg/dL (7.8-10.44); Carbon Dioxide 27 mmol/L (22-29); Chloride 103 mmol/L (98-107); Glucose 111 mg/dL (70-105); Potassium 3.6 mmol/L (3.5-5.1); Sodium 136 mmol/L (136-145)
[2021-01-16] MEDS: Montelukast Sodium 10 mg Tablet PO SCH (21:21)
[2021-01-16] MEDS: Methocarbamol 500 MG TAB PO SCH (21:23)
[2021-01-17 00:37] LABS: Vancomycin, Trough 16.1 ug/mL
[2021-01-17] MEDS: Vancomycin 1.5 GRAM/300 ML BAG 1.5 GM in Premix Bag 1 BAG IVPB SCH ×2 (01:55→12:57)
[2021-01-17] MEDS: Methocarbamol 500 MG TAB PO SCH ×2 (08:18→22:10)
[2021-01-17] MEDS: Primidone 50 MG TAB PO SCH ×2 (08:19→22:09)
[2021-01-17] MEDS: Spironolactone 25 MG TAB PO SCH (08:19)
[2021-01-17] MEDS: Nadolol 40 MG TAB PO SCH (08:19)
[2021-01-17] MEDS: Magnesium Oxide 400 MG TAB PO SCH (08:20)
[2021-01-17] MEDS: Multivitamin W/ Minerals 1 TAB PO SCH (08:20)
[2021-01-17] MEDS: Famotidine 20 MG TAB PO SCH ×2 (08:20→22:10)
[2021-01-17] MEDS: Loratadine 10 MG TAB PO SCH (08:20)
[2021-01-17] MEDS: predniSONE 50 MG TAB PO SCH ×2 (08:20→17:21)
[2021-01-17] MEDS: PARoxetine 20 MG TAB PO SCH (08:20)
[2021-01-17] MEDS: hydrOXYzine 10 MG/5 ML UDCUP PO SCH ×4 (08:21→22:08)
[2021-01-17] MEDS: Nystatin Cream 15 GM TUBE TOP SCH ×2 (08:21→22:09)
[2021-01-17] MEDS: Montelukast Sodium 10 mg Tablet PO SCH (22:10)
[2021-01-18] MEDS: Vancomycin 1.5 GRAM/300 ML BAG 1.5 GM in Premix Bag 1 BAG IVPB SCH ×2 (01:39→14:19)
[2021-01-18] MEDS: Loratadine 10 MG TAB PO SCH (08:42)
[2021-01-18] MEDS: Famotidine 20 MG TAB PO SCH (08:42)
[2021-01-18] MEDS: Magnesium Oxide 400 MG TAB PO SCH (08:42)
[2021-01-18] MEDS: Multivitamin W/ Minerals 1 TAB PO SCH (08:42)
[2021-01-18] MEDS: Spironolactone 25 MG TAB PO SCH (08:43)
[2021-01-18] MEDS: hydrOXYzine 25 MG TAB PO SCH ×3 (08:43→19:33)
[2021-01-18] MEDS: PARoxetine 20 MG TAB PO SCH (08:44)
[2021-01-18] MEDS: predniSONE 50 MG TAB PO SCH ×2 (08:44→19:01)
[2021-01-18] MEDS: Primidone 50 MG TAB PO SCH (08:47)
[2021-01-18] MEDS: Methocarbamol 500 MG TAB PO SCH (08:48)
[2021-01-18] MEDS: Nystatin Cream 15 GM TUBE TOP SCH (08:48)
[2021-01-18] MEDS: Nadolol 40 MG TAB PO SCH (08:49)
[2021-01-18] MEDS ORDERED: Fluticasone Propionate Nasal Spray 16 gm Bottle NASAL SCH (09:00)
[2021-01-18 12:53] LABS: Vancomycin, Trough 18.4 ug/mL
[2021-01-18 19:52] VITALS: BP 155/88; TEMP 98.1
== END 2021-01-18 19:43 | disposition swing bed (61) | DRG 595 ==
LOC: T4-B 00:13
PROVIDERS: ADMIT Student in an Organized Health Care Education/Training Program; ATTEND Internal Medicine
PROC: 02HV33Z Insertion of Infusion Device into Superior Vena Cava, Percutaneous Approach (ICD-10-PCS; principal; 2021-01-16)
PROC: B548ZZA Ultrasonography of Superior Vena Cava, Guidance (ICD-10-PCS; 2021-01-16)
DX: L51.1 Stevens-Johnson syndrome (principal); L89.323 Pressure ulcer of left buttock, stage 3; E87.2 Acidosis; K76.6 Portal hypertension; R78.81 Bacteremia; I85.10 Secondary esophageal varices without bleeding; L97.929 Non-pressure chronic ulcer of unspecified part of left lower leg with unspecified severity; Z20.822 Contact with and (suspected) exposure to COVID-19; M54.9 Dorsalgia, unspecified; G89.29 Other chronic pain; E78.5 Hyperlipidemia, unspecified; I10 Essential (primary) hypertension; I73.9 Peripheral vascular disease, unspecified; F17.210 Nicotine dependence, cigarettes, uncomplicated; E86.0 Dehydration; R25.1 Tremor, unspecified; K70.30 Alcoholic cirrhosis of liver without ascites; F10.20 Alcohol dependence, uncomplicated; B95.62 Methicillin resistant Staphylococcus aureus infection as the cause of diseases classified elsewhere; T37.1X5A Adverse effect of antimycobacterial drugs, initial encounter; I83.029 Varicose veins of left lower extremity with ulcer of unspecified site; L27.1 Localized skin eruption due to drugs and medicaments taken internally; Z79.899 Other long term (current) drug therapy
CPT/HCPCS: 36415; 36569; 80048; 80076; 80202; 83605; 84145; 85025; 86140; 87040; 87077; 87081; 87149; 87186; 87430; 93306; C1751; J1200; J2930; J3370; J3490; J7512

== ENCOUNTER 2021-02-19 16:56 | Inpatient (IN) | payer MEDICARE, OTHER ==
[2021-02-19] MEDS ORDERED: Cefepime 2 GM VIAL ONE (17:38)
[2021-02-19 17:53] LABS: Hemoglobin 11.5 g/dL (14.0-18.0); Mean Corpuscular HGB CONC 33.9 g/dL (32.0-36.0); Mean Corpuscular Hemoglobin 31.1 pg (27.0-31.0); Mean Corpuscular Volume 91.7 fL (78.0-98.0); Mean Platelet Volume 6.4 fL (7.4-10.4); Platelet Count 249 thou/uL (130-400); RBC Distribution Width 15.6 % (11.5-14.5); Red Blood Cell (RBC) Count 3.69 mill/uL (4.70-6.10); White Blood Cell (WBC) Count 12.9 thou/uL (4.8-10.8)
[2021-02-19] MEDS ORDERED: Linezolid 600 MG in Premix Bag 1 BAG IVPB SCH (18:00)
[2021-02-19 18:11] LABS: ALT (SGPT) 19 U/L (8-55); AST (SGOT) 29 U/L (5-34); Albumin 2.6 g/dL (3.5-5.0); Alkaline Phosphatase 121 U/L (40-110); Anion Gap 16 mmol/L (10-20); BUN (Urea Nitrogen) 18 mg/dL (8.4-25.7); Bilirubin, Total 1.9 mg/dL (0.2-1.2); Calc. Creatinine Clearance 0 mL/min (70-130); Calcium 7.2 mg/dL (7.8-10.44); Carbon Dioxide 17 mmol/L (22-29); Chloride 103 mmol/L (98-107); Glucose 95 mg/dL (70-105); Potassium 4.5 mmol/L (3.5-5.1); Protein, Total 5.6 g/dL (6.0-8.3); Sodium 131 mmol/L (136-145)
[2021-02-19 18:15] LABS: Band 20 % (5-11); Lymphocytes 6 % (21-51); MDiff Complete? YES; Monocytes 11 % (0-10); Neutrophil 58 % (42-75); Nucleated RBC 1 % (0); Platelet Morphology Comment Appears Adequate; Polychromasia MODERATE = 3-4 cells (100X) (0-2/hpf); Reactive Lymphocytes 4 % (0-10); Vacuoles SLIGHT
[2021-02-19 21:40] LABS: Lactic Acid 1.8 mmol/L (0.5-2.2)
[2021-02-19] MEDS ORDERED: Ondansetron PF 4 MG/2 ML Vial IVP PRN (22:08)
[2021-02-20 00:07] VITALS: BMI 39.0
[2021-02-20] MEDS ORDERED: Morphine 2 MG/ML VIAL SLOW IVP SCH (00:15)
[2021-02-20 01:13] LABS: Bacteria/HPF None Seen HPF (None Seen); Bilirubin Negative (Negative); Blood, Urine Negative (Negative); Clarity Clear (Clear); Glucose, Urine (Dipstick) Normal (Negative); Ketone, Urine Negative (Negative); Leukocyte Negative Leu/uL (Negative); Nitrite Negative (Negative); Protein, Urine (Dipstick) 20 mg/dL (Neg-Trace); RBC/HPF 0-3 HPF (0-3); Squamous Epithelial 0-3 HPF (0-3); Urobilinogen Normal mg/dL (Less than 2); WBC/HPF 0-3 HPF (0-3)
[2021-02-20 01:22] LABS: Specific Gravity, Urine 1.055 (1.002-1.036); Urine Culture Reflex No No
[2021-02-20 06:09] LABS: INR-International Normal Ratio 1.8; PTT 39.1 sec (22.9-36.1); Prothrombin Time 21.3 sec (12.0-14.7)
[2021-02-20 06:11] LABS: Anion Gap 15 mmol/L (10-20); BUN (Urea Nitrogen) 18 mg/dL (8.4-25.7); Calc. Creatinine Clearance 126 mL/min (70-130); Calcium 7.3 mg/dL (7.8-10.44); Carbon Dioxide 18 mmol/L (22-29); Chloride 105 mmol/L (98-107); Glucose 89 mg/dL (70-105); Magnesium 1.4 mg/dL (1.6-2.6); Potassium 4.7 mmol/L (3.5-5.1); Sodium 133 mmol/L (136-145)
[2021-02-20 06:12] LABS: Hemoglobin 10.8 g/dL (14.0-18.0); Mean Corpuscular HGB CONC 32.4 g/dL (32.0-36.0); Mean Corpuscular Hemoglobin 29.9 pg (27.0-31.0); Mean Corpuscular Volume 92.3 fL (78.0-98.0); Mean Platelet Volume 6.2 fL (7.4-10.4); Platelet Count 259 thou/uL (130-400); RBC Distribution Width 15.4 % (11.5-14.5); Red Blood Cell (RBC) Count 3.62 mill/uL (4.70-6.10)
[2021-02-20 06:50] LABS: Band 18 % (5-11); Eosinophils 1 % (0-10); Lymphocytes 15 % (21-51); MDiff Complete? YES; Monocytes 4 % (0-10); Neutrophil 62 % (42-75)
[2021-02-20] MEDS: Magnesium Oxide 400 MG TAB PO SCH (07:44)
[2021-02-20] MEDS: Nadolol 40 MG TAB PO SCH (07:44)
[2021-02-20] MEDS: Furosemide 20 MG TAB PO SCH (07:44)
[2021-02-20] MEDS: Folic Acid 1 MG TAB PO SCH (07:44)
[2021-02-20] MEDS: Spironolactone 25 MG TAB PO SCH (07:45)
[2021-02-20] MEDS: PARoxetine 20 MG TAB PO SCH (07:45)
[2021-02-20] MEDS: Thiamine 100 MG TAB PO SCH (07:45)
[2021-02-20] MEDS ORDERED: Linezolid 600 MG in Premix Bag 1 BAG IVPB SCH (08:00)
[2021-02-20] MEDS ORDERED: Enoxaparin Sodium 40 MG/0.4 ML SYRINGE SC SCH (09:00)
[2021-02-20] MEDS: Primidone 50 MG TAB PO SCH ×2 (09:04→20:55)
[2021-02-20] MEDS: Acetaminophen 325 MG TAB PO PRN ×2 (13:48→17:23)
[2021-02-20] MEDS: Morphine 2 MG/ML VIAL SLOW IVP PRN (15:29)
[2021-02-20] MEDS: DAPTOmycin 700 MG in Sodium Chloride 0.9% 100 ML IVPB SCH (20:54)
[2021-02-21] MEDS: Morphine 2 MG/ML VIAL SLOW IVP PRN ×4 (01:25→17:41)
[2021-02-21] MEDS ORDERED: Cefepime 2 GM in Sodium Chloride 0.9% 100 ML IVPB SCH (06:00)
[2021-02-21 06:23] LABS: #Basophils 0.1 thou/uL (0.0-0.2); #Lymphocytes 1.2 thou/uL (1.20-3.40); #Monocytes 1.7 thou/uL (0.11-0.59); #Neutrophils 8.3 thou/uL (1.40-6.50); %Eosinophils 0.4 % (0.0-10.0); %Lymphocytes 10.5 % (21.0-51.0); %Monocytes 14.9 % (0.0-10.0); %Neutrophils 73.3 % (42.0-75.0); Hemoglobin 9.6 g/dL (14.0-18.0); Mean Corpuscular HGB CONC 34.1 g/dL (32.0-36.0); Mean Corpuscular Hemoglobin 31.3 pg (27.0-31.0); Mean Corpuscular Volume 91.7 fL (78.0-98.0); Mean Platelet Volume 6.5 fL (7.4-10.4); Platelet Count 211 thou/uL (130-400); RBC Distribution Width 15.4 % (11.5-14.5); Red Blood Cell (RBC) Count 3.05 mill/uL (4.70-6.10); White Blood Cell (WBC) Count 11.3 thou/uL (4.8-10.8)
[2021-02-21 06:48] LABS: Anion Gap 14 mmol/L (10-20); BUN (Urea Nitrogen) 18 mg/dL (8.4-25.7); CK (CPK) 110 U/L (30-200); Calc. Creatinine Clearance 110 mL/min (70-130); Calcium 7.5 mg/dL (7.8-10.44); Carbon Dioxide 19 mmol/L (22-29); Chloride 107 mmol/L (98-107); Glucose 80 mg/dL (70-105); Magnesium 1.5 mg/dL (1.6-2.6); Potassium 4.3 mmol/L (3.5-5.1); Sodium 136 mmol/L (136-145)
[2021-02-21] MEDS ORDERED: Linezolid 600 MG in Premix Bag 1 BAG IVPB SCH (07:00)
[2021-02-21] MEDS: Thiamine 100 MG TAB PO SCH (08:45)
[2021-02-21] MEDS: Primidone 50 MG TAB PO SCH (08:45)
[2021-02-21] MEDS: Magnesium Oxide 400 MG TAB PO SCH (08:45)
[2021-02-21] MEDS: PARoxetine 20 MG TAB PO SCH (08:45)
[2021-02-21] MEDS: Folic Acid 1 MG TAB PO SCH (08:46)
[2021-02-21] MEDS: Furosemide 20 MG TAB PO SCH (08:46)
[2021-02-21] MEDS: Nadolol 40 MG TAB PO SCH (08:46)
[2021-02-21] MEDS ORDERED: Amino Acids 4.25 %/Dextrose 5% 2,000 ML BAG IV SCH (09:00)
[2021-02-21] MEDS: Spironolactone 25 MG TAB PO SCH (09:35)
[2021-02-21] MEDS ORDERED: Artificial Tear Sol 15 ML BOT EA EYE PRN (12:34)
[2021-02-21] MEDS ORDERED: Magnesium 2 GM/50 ML 2 GM in Premix Bag 1 BAG IVPB SCH (12:45)
[2021-02-21] MEDS ORDERED: methylPREDNISolone Sod Succ/PF 125 MG/2 ML VIAL IVP SCH (12:45)
[2021-02-21] MEDS ORDERED: Bacteriostatic Water 30 ML VIAL FS PRN (13:00)
[2021-02-21] MEDS ORDERED: Amino Acids 4.25 %/Dextrose 5% 1,000 ML IV SCH (13:00)
[2021-02-21] MEDS: methylPREDNISolone Sod Succ 40 MG VIAL IVP SCH (13:17)
[2021-02-21] MEDS ORDERED: Famotidine/PF 20 mg/2ml Vial SLOW IVP SCH (16:15)
[2021-02-21] MEDS ORDERED: Loratadine 10 MG TAB PO SCH (17:30)
[2021-02-21] MEDS: Famotidine/PF 20 mg/2ml Vial SLOW IVP SCH (21:58)
[2021-02-21] MEDS: DAPTOmycin 700 MG in Sodium Chloride 0.9% 100 ML IVPB SCH (21:58)
[2021-02-21] MEDS: Nystatin Cream 15 GM TUBE TOP SCH (22:00)
[2021-02-22] MEDS: methylPREDNISolone Sod Succ 40 MG VIAL IVP SCH (02:16)
[2021-02-22] MEDS: Morphine 2 MG/ML VIAL SLOW IVP PRN (03:56)
[2021-02-22 06:20] LABS: #Monocytes 0.8 thou/uL (0.11-0.59); #Neutrophils 8.6 thou/uL (1.40-6.50); %Basophils 0.2 % (0.0-1.0); %Eosinophils 0.1 % (0.0-10.0); %Lymphocytes 9.2 % (21.0-51.0); %Monocytes 7.5 % (0.0-10.0); Hemoglobin 9.3 g/dL (14.0-18.0); Mean Corpuscular HGB CONC 33.4 g/dL (32.0-36.0); Mean Corpuscular Hemoglobin 30.8 pg (27.0-31.0); Mean Corpuscular Volume 92.3 fL (78.0-98.0); Mean Platelet Volume 6.5 fL (7.4-10.4); Platelet Count 195 thou/uL (130-400); RBC Distribution Width 15.4 % (11.5-14.5); White Blood Cell (WBC) Count 10.4 thou/uL (4.8-10.8)
[2021-02-22 06:25] LABS: Anion Gap 12 mmol/L (10-20); BUN (Urea Nitrogen) 19 mg/dL (8.4-25.7); Calc. Creatinine Clearance 124 mL/min (70-130); Calcium 7.3 mg/dL (7.8-10.44); Carbon Dioxide 19 mmol/L (22-29); Chloride 106 mmol/L (98-107); Glucose 146 mg/dL (70-105); Magnesium 1.8 mg/dL (1.6-2.6); Potassium 4.2 mmol/L (3.5-5.1); Sodium 133 mmol/L (136-145)
[2021-02-22] MEDS: Folic Acid 1 MG TAB PO SCH (07:42)
[2021-02-22] MEDS: Thiamine 100 MG TAB PO SCH (07:42)
[2021-02-22] MEDS: Magnesium Oxide 400 MG TAB PO SCH (07:42)
[2021-02-22] MEDS: PARoxetine 20 MG TAB PO SCH (07:42)
[2021-02-22] MEDS: Famotidine/PF 20 mg/2ml Vial SLOW IVP SCH (07:43)
[2021-02-22] MEDS: Nadolol 40 MG TAB PO SCH (07:43)
[2021-02-22] MEDS: Furosemide 20 MG TAB PO SCH (07:43)
[2021-02-22] MEDS: Nystatin Cream 15 GM TUBE TOP SCH (07:44)
[2021-02-22 08:01] VITALS: TEMP 97.7
[2021-02-22] MEDS: Spironolactone 25 MG TAB PO SCH (08:37)
[2021-02-22] MEDS ORDERED: Loratadine 10 MG TAB PO SCH (09:00)
[2021-02-22 09:43] VITALS: BP 139/69
== END 2021-02-22 08:56 | disposition short-term general hospital (02) | DRG 871 ==
LOC: ERS 16:56 → T4-A 20:57
PROVIDERS: ADMIT Student in an Organized Health Care Education/Training Program; ATTEND Internal Medicine
DX: A41.02 Sepsis due to Methicillin resistant Staphylococcus aureus (principal); E43 Unspecified severe protein-calorie malnutrition; K76.6 Portal hypertension; I50.32 Chronic diastolic (congestive) heart failure; L03.314 Cellulitis of groin; E87.1 Hypo-osmolality and hyponatremia; L51.1 Stevens-Johnson syndrome; M54.9 Dorsalgia, unspecified; G89.29 Other chronic pain; E78.5 Hyperlipidemia, unspecified; E78.00 Pure hypercholesterolemia, unspecified; I73.9 Peripheral vascular disease, unspecified; F17.210 Nicotine dependence, cigarettes, uncomplicated; K70.31 Alcoholic cirrhosis of liver with ascites; I11.0 Hypertensive heart disease with heart failure; R65.20 Severe sepsis without septic shock; J44.9 Chronic obstructive pulmonary disease, unspecified; F10.20 Alcohol dependence, uncomplicated; N49.2 Inflammatory disorders of scrotum; E83.42 Hypomagnesemia; L21.0 Seborrhea capitis; H10.10 Acute atopic conjunctivitis, unspecified eye; B36.9 Superficial mycosis, unspecified; Z88.8 Allergy status to other drugs, medicaments and biological substances; Z88.1 Allergy status to other antibiotic agents; Z79.899 Other long term (current) drug therapy; Z98.890 Other specified postprocedural states; Z68.39 Body mass index [BMI] 39.0-39.9, adult
CPT/HCPCS: 36415; 72193; 76705; 80048; 80053; 81001; 82550; 83605; 83735; 85025; 85610; 85730; 87040; 87070; 87077; 87149; 87186; 87205; 87255; 90471; 90732; 94640; 96365; 96366; 96367; G0009; J0692; J0878; J2020; J2270; J2920; J2930; J3475; J3490; J7620; Q9967; S0028